=== PATIENT | female | born 1935 | race Caucasian/White ===

== ENCOUNTER 2017-04-22 15:24 | Inpatient (IN) | payer OTHER ==
[~2017-04-22] VITALS: Ht 144.8 cm; Wt 58.2 kg
[~2017-04-22 15:24] MED LIST: ASPI-113 PO; DOCU100C31 PO; LISI-729 PO; SIMV20TA2 PO
[2017-04-22] MEDS ORDERED: CIPROFLOXACIN 400MG / 200ML D5W IV STA (15:38)
[2017-04-22] MEDS ORDERED: SODIUM CHLORIDE 0.9% 1000ML 500 ML IV STA (15:38)
[2017-04-22] MEDS ORDERED: SODIUM CHLORIDE 0.9% 1000ML 1,000 ML IV STA (15:38)
[2017-04-22] MEDS ORDERED: ONDANSETRON INJ 2 MG/ML 2 ML VIAL IV STA (15:38)
[2017-04-22] MEDS ORDERED: OPTIRAY 320 IV PRN (15:45)
[2017-04-22] MEDS ORDERED: ASPI81TA28 PO (15:51)
--- NOTE | 2017-04-22 16:12 | EMERGENCY ROOM VISIT NOTE ---
History Report prepared by Reyna: Leena Leija Under the Supervision of: Dr. Declan العلي M.D. First contact with patient: 15:30 Chief Complaint: REFERRED BY DOCTOR Stated Complaint: JAUNDICE-SENT BY MD OFFICE History of Present Illness The patient is a 81 year old female who presents to the Emergency Room with complaints of worsening jaundiced skin starting about a week ago and worsening 2 days ago. The patient was placed on Bactrim for a suspected UTI a few days ago. She is no longer on the Bactrim. She had blood work 2 days ago which showed elevated liver enzymes. Yesterday, she had an ultrasound of the liver. As per daughter, the patient might need an ERCP in the near future. The patient complains of dizziness and lightheadedness. She started having nausea and vomiting today. She reports some pain with urination. She had a dark orange urine with a red sediment starting a few days ago which resolved for a day and returned today. The patient denies abdominal pain, or any other complaints. She has a history of cholecystectomy. Source of History: patient Onset: about a week ago Position: other (global) Quality: other (jaundiced skin) Timing: worsening Associated Symptoms: + nausea, + vomiting, No abdominal pain Review of Systems See HPI for pertinent positives & negatives. A total of 10 systems reviewed and were otherwise negative. Past Medical & Surgical Medical Problems: (1) Dehydration (2) Headache above the eye region (3) HLD (hyperlipidemia) (4) Hypertension (5) Hypertensive crisis (6) Stroke (7) UTI (urinary tract infection) Surgical Problems: (1) History of cholecystectomy Family History FHx: gallbladder disease Hypertension Social History Smoking Status: Never Smoker Alcohol Use: none Drug Use: none Housing Status: lives with family Occupation Status: retired Current/Historical Medications Scheduled Aspirin (Aspirin Ec), 81 MG PO DAILY Docusate Sodium (Docusate Sodium), 1 CAP PO DAILY Lisinopril (Zestril), 5 MG PO QAM Simvastatin (Zocor), 20 MG PO PM Allergies Coded Allergies: BEE STING (Unverified Allergy, Mild, RASH/WELTS, 09/11/16) Penicillins (Verified Allergy, Mild, OTHER, 09/11/16) patient is unsure how this got on her allergy list. Physical Exam Vital Signs Date Time Temp Pulse Resp B/P (MAP) Pulse Ox O2 Delivery O2 Flow Rate FiO2 04/22/17 18:39 69 27 97 04/22/17 18:38 64 04/22/17 18:36 04/22/17 18:34 66 20 96 Room Air 04/22/17 18:24 64 14 96 04/22/17 18:09 64 97 04/22/17 18:02 88/67 04/22/17 17:54 65 97 04/22/17 17:39 67 94 04/22/17 17:34 65 18 125/54 97 Room Air 04/22/17 17:30 125/54 04/22/17 17:02 101/60 04/22/17 16:54 67 98 04/22/17 16:43 69 17 94/52 96 Room Air 04/22/17 16:39 71 87 04/22/17 16:38 94/52 04/22/17 15:27 36.7 102 20 123/66 99 Room Air Physical Exam GENERAL: Patient is in no acute distress. HEENT: No acute trauma, normocephalic atraumatic, mucous membranes moist, no nasal congestion, mild scleral icterus. NECK: No stridor, no adenopathy, no meningismus, trachea is midline. LUNGS: Clear to auscultation bilaterally, no wheeze, no rhonchi, breath sounds equal. HEART: Without murmurs gallops or rubs, regular rate and rhythm. ABDOMEN: Soft, nontender, bowel sounds positive, no hernias, no peritonitis. EXTREMITIES: No cyanosis or edema, full range of motion of all the joints without pain or difficulty, no signs for acute trauma. NEUROLOGIC: Oriented x 3, no acute motor or sensory deficits, no focal weakness. SKIN: No rash, moderate jaundice, no diaphoresis. Medical Decision & Procedures ER Provider Diagnostic Interpretation: Ultrasound of the right upper quadrant 04/21/2017 Impression: Significant interval increase in common bile duct diameter, now measures 17 mm measured 8.7 mm on the 07/26/2016 study. Further evaluation with ERCP or MRCP is recommended. Resident Physician: Celeste Franz Radiologist: Tabitha Goodwin CT results as stated below per my review and radiologist interpretation: CT ABD/PELVIS IV CONTRAST ONLY CLINICAL HISTORY: Painless jaundice COMPARISON STUDY: 09/11/2016 TECHNIQUE: Following the IV administration of 94 mL of Optiray-320, CT scan of the abdomen and pelvis was performed from the lung bases to the proximal femurs. Images are reviewed in the axial, sagittal, and coronal planes. IV contrast was administered without complication. CT DOSE: 359.64 mGy.cm FINDINGS: Lower chest: There is a solid 5 mm left lower lobe perifissural nodule. This remain similar in size to a prior chest CT performed in May 2015. Liver: No focal hepatic masses are visualized. There is mild central biliary ductal dilatation. Common bile duct is dilated measuring 11 mm. There is a 2 cm long filling defect within the distal common bile duct. This could represent either a calculus, or polypoid neoplasm. An ERCP is recommended in follow-up. Gallbladder: Surgically absent Spleen: Normal in size and attenuation. Pancreas: Unremarkable. There is no ductal dilatation. Adrenal glands: Unremarkable. Kidneys: There is a 1 cm right renal cyst. There is no hydronephrosis. Bowel: There are no transition zones indicate bowel obstruction. There is no acute diverticulitis. There are few scattered colonic diverticula present. The appendix appears normal. Peritoneum: There is no intraperitoneal free air or abdominal ascites. Vasculature: The abdominal aorta is normal in course and caliber. Adenopathy: None. Pelvic viscera: There is abnormal endometrial thickening which measures 18 mm. Nonemergent gynecological consultation is recommended Skeletal structures: There is bilateral L5 spondylolysis. There is a grade 1-2/4 spondylolisthesis of L5 on S1. IMPRESSION: 1. Intra and extrahepatic biliary ductal dilatation 2. 2 cm long filling defect within the distal common bile duct. While likely representing a common bile duct calculus, a polypoid intraductal neoplasm could appear similar. An ERCP is recommended in follow-up 3. No pancreatic masses identified. No evidence of pancreatic ductal dilatation. No hepatic masses. 4. Surgically absent gallbladder 5. No evidence of bowel obstruction no evidence of free air 6. Abnormal endometrial thickening which measures 18 mm. Nonemergent gynecological consultation is recommended Electronically signed by: Isma Colmenares M.D. 04/22/2017 5:31 PM Dictated Date/Time: 04/22/2017 5:21 PM Laboratory Results 04/22/17 16:05 Red Blood Count 4.01, Mean Corpuscular Volume 95.5, Mean Corpuscular Hemoglobin 32.7, Mean Corpuscular Hemoglobin Concent 34.2, Mean Platelet Volume 13.7, Neutrophils (%) (Auto) 76.6, Lymphocytes (%) (Auto) 13.0, Monocytes (%) (Auto) 8.7, Eosinophils (%) (Auto) 1.0, Basophils (%) (Auto) 0.3, Neutrophils # (Auto) 6.09, Lymphocytes # (Auto) 1.03, Monocytes # (Auto) 0.69, Eosinophils # (Auto) 0.08, Basophils # (Auto) 0.02 04/22/17 16:05 Test 04/22/17 16:05 04/22/17 16:14 04/22/17 16:28 White Blood Count 7.94 K/uL (4.8-10.8) Red Blood Count 4.01 M/uL (4.2-5.4) Hemoglobin 13.1 g/dL (12.0-16.0) Hematocrit 38.3 % (37-47) Mean Corpuscular Volume 95.5 fL (80-100) Mean Corpuscular Hemoglobin 32.7 pg (25-34) Mean Corpuscular Hemoglobin Concent 34.2 g/dl (32-36) Platelet Count 217 K/uL (130-400) Mean Platelet Volume 13.7 fL (7.4-10.4) Neutrophils (%) (Auto) 76.6 % Lymphocytes (%) (Auto) 13.0 % Monocytes (%) (Auto) 8.7 % Eosinophils (%) (Auto) 1.0 % Basophils (%) (Auto) 0.3 % Neutrophils # (Auto) 6.09 K/uL (1.4-6.5) Lymphocytes # (Auto) 1.03 K/uL (1.2-3.4) Monocytes # (Auto) 0.69 K/uL (0.11-0.59) Eosinophils # (Auto) 0.08 K/uL (0-0.5) Basophils # (Auto) 0.02 K/uL (0-0.2) RDW Standard Deviation 49.2 fL (36.4-46.3) RDW Coefficient of Variation 14.2 % (11.5-14.5) Immature Granulocyte % (Auto) 0.4 % Immature Granulocyte # (Auto) 0.03 K/uL (0.00-0.02) Prothrombin Time 11.4 SECONDS (9.0-12.0) Prothromb Time International Ratio 1.1 (0.9-1.1) Activated Partial Thromboplast Time 28.8 SECONDS (21.0-31.0) Partial Thromboplastin Ratio 1.1 Anion Gap 7.0 mmol/L (3-11) Est Creatinine Clear Calc Drug Dose 37.6 ml/min Estimated GFR () 73.4 Estimated GFR (Non- 63.4 BUN/Creatinine Ratio 21.6 (10-20) Calcium Level 9.4 mg/dl (8.5-10.1) Total Bilirubin 8.4 mg/dl (0.2-1) Direct Bilirubin 6.7 mg/dl (0-0.2) Aspartate Amino Transf (AST/SGOT) 78 U/L (15-37) Alanine Aminotransferase (ALT/SGPT) 56 U/L (12-78) Alkaline Phosphatase 407 U/L (45-117) Total Protein 7.4 gm/dl (6.4-8.2) Albumin 2.8 gm/dl (3.4-5.0) Lipase 207 U/L (73-393) Bedside Lactic Acid Venous 2.08 mmol/L (0.90-1.70) Lactic Acid Level 1.6 mmol/L (0.4-2.0) Lab results from 04/20/2017 showed: WBC 7.43 HGB 13.5 BUN 20 Creatinine 1.2 (H) Albumin 3.4 (L) AST 79 (H) Alkaline Phosphate 443 (H) Bilirubin, Total 8.5 (H) ALT 58(H) Her urine culture was negative for infection. Laboratory results reviewed by me. Medications Administered Medications (Trade) Dose Ordered Sig/Nayeli Route Start Time Stop Time Status Last Admin Dose Admin Sodium Chloride 500 ml @ 999 mls/hr Q31M STAT IV 04/22/17 15:38 04/22/17 16:08 DC 04/22/17 16:16 999 MLS/HR Ondansetron HCl (Zofran Inj) 4 mg NOW STAT IV 04/22/17 15:38 04/22/17 15:42 DC 04/22/17 16:16 4 MG Sodium Chloride 1,000 ml @ 125 mls/hr Q8H STAT IV 04/22/17 15:38 04/22/17 20:23 DC 04/22/17 16:40 125 MLS/HR Ciprofloxacin/ Dextrose (Cipro / D5W) 400 mg NOW STAT IV 04/22/17 15:38 04/22/17 15:42 DC 04/22/17 16:41 400 MG Sodium Chloride 1,000 ml @ 50 mls/hr Q20H IV 04/22/17 18:45 05/22/17 18:44 04/22/17 18:45 50 MLS/HR ECG Indication: other (Jaundiced skin) Rate (beats per minute): 63 Rhythm: normal sinus Findings: no acute ischemic change, no ectopy ED Course 1530: The patient was evaluated in room A10. A complete history and physical exam was performed. 1538: Ciprofloxacin/Dextrose 400 mg IV, Sodium Chloride 1000 ml @ 125 mls/hr IV , Zofran Inj 4 mg IV, Sodium Chloride 500 ml @ 999 mls/hr IV 1818: I discussed the patient's case with Dr. Sandoval, dub room engineer with [facility]. He recommended hospitalizing the patient. 1827: Upon reexamination the patient is resting comfortably. I discussed results and treatment plan with the patient. She verbalizes agreement and understanding. I discussed the patient's case with Dr. Alexander, from [facility]. The patient will be evaluated for further management. Medical Decision Medication Reconciliation: I attest that I have personally reviewed the patient' s current medication list. Blood Pressure Screening: Patient was found to have normal blood pressure on screening and does not require follow-up. Differential diagnosis includes but is not limited to malignancy, biliary obstruction, liver mass, pancreatic mass, electrolyte imbalance, dehydration, infection, jaundice, UTI. There is no leukocytosis or concerning anemia. No significant electrolyte abnormality or kidney failure. Liver enzymes are elevated, bilirubin is over 8. No pancreatitis. EKG shows a normal sinus rhythm, no acute ischemia. Abdominal and pelvis CT shows evidence for biliary obstruction, no bowel obstruction. No liver mass. Urinalysis shows possible infection, urine culture is pending. Blood cultures are pending. Lactic acid level was not significantly elevated making severe sepsis less likely. The patient received IV Zofran, IV saline, she was given IV Cipro. Given her jaundice, given the findings on CT, admission/observation was warranted. I spoke to the GI physician on-call as well as to the on-call hospitalist. Case management has been involved. The patient is aware of all her findings. Consults Time Called: 1805 Consulting Physician: Dr. Sandoval, dub room engineer with [facility] Returned Call: 1817 I discussed the patient's case with Dr. Sandoval, dub room engineer with [facility]. He recommended hospitalizing the patient. Additional Consults: Time Called: 1820 Consulted Physician: Dr. Alexander, from [facility] Returned Call: 1826 Additional Comments: I discussed the patient's case with Dr. Alexander, from [facility]. Impression Primary Impression: Biliary obstruction Additional Impressions: Jaundice Vomiting Scribe Attestation The scribe's documentation has been prepared under my direction and personally reviewed by me in its entirety. I confirm that the note above accurately reflects all work, treatment, procedures, and medical decision making performed by me. Departure Information Dispostion Being Evaluated By Hospitalist Referrals No Doctor, Assigned (PCP) Patient Instructions My [facility] Problem Qualifiers
[2017-04-22 16:23] LABS: BASO % 0.3 %; BASO ABS # 0.02 K/uL (0-0.2); COMPLETE YES; HEMATOCRIT 38.3 % (37-47); IG% 0.4 %; LYMPH ABS # 1.03 K/uL (1.2-3.4); MEAN CELL VOLUME 95.5 fL (80-100); MEAN CORPUSCULAR HEMOGLOBIN 32.7 pg (25-34); MEAN CORPUSCULAR HGB CONC 34.2 g/dl (32-36); MEAN PLATELET VOLUME 13.7 fL (7.4-10.4); MONO % 8.7 %; NEUT % 76.6 %; PLATELET COUNT 217 K/uL (130-400); RED BLOOD COUNT 4.01 M/uL (4.2-5.4); WHITE BLOOD COUNT 7.94 K/uL (4.8-10.8)
[2017-04-22 16:35] LABS: INR 1.1 (0.9-1.1); PARTIAL THROMBOPLASTIN RATIO 1.1; PROTHROMBIN TIME (PATIENT) 11.4 SECONDS (9.0-12.0)
[2017-04-22 16:53] LABS: BUN/CREATININE RATIO 21.6 (10-20); CALCIUM 9.4 mg/dl (8.5-10.1); CREATININE 0.86 mg/dl (0.60-1.20); POTASSIUM 4.6 mmol/L (3.5-5.1)
--- NOTE | 2017-04-22 17:32 | DIAGNOSTIC IMAGING REPORT ---
CT ABD/PELVIS IV CONTRAST ONLY CLINICAL HISTORY: Painless jaundice COMPARISON STUDY: 09/11/2016 TECHNIQUE: Following the IV administration of 94 mL of Optiray-320, CT scan of the abdomen and pelvis was performed from the lung bases to the proximal femurs. Images are reviewed in the axial, sagittal, and coronal planes. IV contrast was administered without complication. CT DOSE: 359.64 mGy.cm FINDINGS: Lower chest: There is a solid 5 mm left lower lobe perifissural nodule. This remain similar in size to a prior chest CT performed in May 2015. Liver: No focal hepatic masses are visualized. There is mild central biliary ductal dilatation. Common bile duct is dilated measuring 11 mm. There is a 2 cm long filling defect within the distal common bile duct. This could represent either a calculus, or polypoid neoplasm. An ERCP is recommended in follow-up. Gallbladder: Surgically absent Spleen: Normal in size and attenuation. Pancreas: Unremarkable. There is no ductal dilatation. Adrenal glands: Unremarkable. Kidneys: There is a 1 cm right renal cyst. There is no hydronephrosis. Bowel: There are no transition zones indicate bowel obstruction. There is no acute diverticulitis. There are few scattered colonic diverticula present. The appendix appears normal. Peritoneum: There is no intraperitoneal free air or abdominal ascites. Vasculature: The abdominal aorta is normal in course and caliber. Adenopathy: None. Pelvic viscera: There is abnormal endometrial thickening which measures 18 mm. Nonemergent gynecological consultation is recommended Skeletal structures: There is bilateral L5 spondylolysis. There is a grade 1-2/4 spondylolisthesis of L5 on S1. IMPRESSION: 1. Intra and extrahepatic biliary ductal dilatation 2. 2 cm long filling defect within the distal common bile duct. While likely representing a common bile duct calculus, a polypoid intraductal neoplasm could appear similar. An ERCP is recommended in follow-up 3. No pancreatic masses identified. No evidence of pancreatic ductal dilatation. No hepatic masses. 4. Surgically absent gallbladder 5. No evidence of bowel obstruction no evidence of free air 6. Abnormal endometrial thickening which measures 18 mm. Nonemergent gynecological consultation is recommended Electronically signed by: Isma Colmenares M.D. 04/22/2017 5:31 PM Dictated Date/Time: 04/22/2017 5:21 PM
--- NOTE | 2017-04-22 18:39 | History and Physical ---
History & Physical Date & Time of Service: Apr 22, 2017 at 18:39 Chief Complaint: Jaundice-Sent By Md Office Primary Care Physician: Janet Maria D.O. History of Present Illness Source: patient, family (Daughter) Patient is a 81 Yr female with PMH of CVA with residual left sided weakness, HTN, cholelithiasis S/P cholecystectomy in 2008 presents with worsening Jaundice since 7 days duration. Patient was recently treated for a possible UTI with Bactrim by her PCP which she completed the course. She reports generalized weakness, dizziness and worsening itchiness of skin since 7 days. Also states having nausea, chills and ? [place] colored urine. Denies any history of chest pain, SOB, fever, vomiting, abdominal pain, diarrhea, cough, bleeding in stools. CT abdomen is suggestive of possible CBD stone. Past Medical/Surgical History Medical Problems: (1) Dehydration Status: Resolved (2) Headache above the eye region Status: Resolved (3) HLD (hyperlipidemia) Status: Chronic (4) Hypertension Status: Chronic (5) Hypertensive crisis Status: Resolved (6) Stroke Status: Resolved (7) UTI (urinary tract infection) Status: Resolved Surgical Problems: (1) History of cholecystectomy Status: Resolved Family History FHx: gallbladder disease Hypertension Reviewed. Not relevant Social History Smoking Status: Never Smoker Alcohol Use: none Drug Use: none Occupational Status: retired Immunizations History of Influenza Vaccine: No History of Tetanus Vaccine?: Yes History of Pneumococcal: No History of Hepatitis B Vaccine: No Multi-Drug Resistant Organisms History of MDRO: Yes Allergies Coded Allergies: BEE STING (Unverified Allergy, Mild, RASH/WELTS, 09/11/16) Penicillins (Verified Allergy, Mild, OTHER, 09/11/16) patient is unsure how this got on her allergy list. Home Medications Scheduled Aspirin (Aspirin Ec), 81 MG PO DAILY Docusate Sodium (Docusate Sodium), 1 CAP PO DAILY Lisinopril (Zestril), 5 MG PO QAM Simvastatin (Zocor), 20 MG PO PM Review of Systems See HPI for pertinent positives & negatives. A total of 10 systems reviewed and were otherwise negative. Physical Exam Vital Signs Date Time Temp Pulse Resp B/P (MAP) Pulse Ox O2 Delivery O2 Flow Rate FiO2 04/22/17 18:38 64 04/22/17 18:34 66 20 96 Room Air 04/22/17 17:34 65 18 125/54 97 Room Air 04/22/17 16:43 69 17 94/52 96 Room Air 04/22/17 15:27 36.7 102 20 123/66 99 Room Air General Appearance: WD/WN, no apparent distress Head: normocephalic, atraumatic Eyes: normal inspection, PERRL, EOMI, + pertinent finding (Visual loss on lateral side) ENT: normal ENT inspection, hearing grossly normal Neck: supple, trachea midline Respiratory/Chest: chest non-tender, lungs clear, normal breath sounds, no accessory muscle use Cardiovascular: regular rate, rhythm, no edema, no murmur Abdomen/GI: normal bowel sounds, non tender, soft Back: normal inspection Extremities/Musculoskelatal: normal inspection, no pedal edema Neurologic/Psych: black oxide coating equipment tender II-XII nml as tested, alert, normal mood/affect, oriented x 3, + pertinent finding (Vision loss on lateral side, grossly no focal deficits) Skin: warm/dry, no rash, + jaundice, + pertinent finding (Excoriations on extrtemities ) Diagnostics Laboratory Results Results Past 24 Hours Test 04/22/17 16:05 04/22/17 16:14 04/22/17 16:28 Range/Units White Blood Count 7.94 4.8-10.8 K/uL Red Blood Count 4.01 4.2-5.4 M/uL Hemoglobin 13.1 12.0-16.0 g/dL Hematocrit 38.3 37-47 % Mean Corpuscular Volume 95.5 80-100 fL Mean Corpuscular Hemoglobin 32.7 25-34 pg Mean Corpuscular Hemoglobin Concent 34.2 32-36 g/dl Platelet Count 217 130-400 K/uL Mean Platelet Volume 13.7 7.4-10.4 fL Neutrophils (%) (Auto) 76.6 % Lymphocytes (%) (Auto) 13.0 % Monocytes (%) (Auto) 8.7 % Eosinophils (%) (Auto) 1.0 % Basophils (%) (Auto) 0.3 % Neutrophils # (Auto) 6.09 1.4-6.5 K/uL Lymphocytes # (Auto) 1.03 1.2-3.4 K/uL Monocytes # (Auto) 0.69 0.11-0.59 K/uL Eosinophils # (Auto) 0.08 0-0.5 K/uL Basophils # (Auto) 0.02 0-0.2 K/uL RDW Standard Deviation 49.2 36.4-46.3 fL RDW Coefficient of Variation 14.2 11.5-14.5 % Immature Granulocyte % (Auto) 0.4 % Immature Granulocyte # (Auto) 0.03 0.00-0.02 K/uL Prothrombin Time 11.4 9.0-12.0 SECONDS Prothromb Time International Ratio 1.1 0.9-1.1 Activated Partial Thromboplast Time 28.8 21.0-31.0 SECONDS Partial Thromboplastin Ratio 1.1 Sodium Level 136 136-145 mmol/L Potassium Level 4.6 3.5-5.1 mmol/L Chloride Level 104 98-107 mmol/L Carbon Dioxide Level 25 21-32 mmol/L Anion Gap 7.0 3-11 mmol/L Blood Urea Nitrogen 19 7-18 mg/dl Creatinine 0.86 0.60-1.20 mg/dl Est Creatinine Clear Calc Drug Dose 37.6 ml/min Estimated GFR () 73.4 Estimated GFR (Non- 63.4 BUN/Creatinine Ratio 21.6 10-20 Random Glucose 99 70-99 mg/dl Calcium Level 9.4 8.5-10.1 mg/dl Total Bilirubin 8.4 0.2-1 mg/dl Direct Bilirubin 6.7 0-0.2 mg/dl Aspartate Amino Transf (AST/SGOT) 78 15-37 U/L Alanine Aminotransferase (ALT/SGPT) 56 12-78 U/L Alkaline Phosphatase 407 45-117 U/L Total Protein 7.4 6.4-8.2 gm/dl Albumin 2.8 3.4-5.0 gm/dl Lipase 207 73-393 U/L Bedside Lactic Acid Venous 2.08 0.90-1.70 mmol/L Lactic Acid Level 1.6 0.4-2.0 mmol/L Microbiology Results 04/22/17 Blood Culture, Received Pending 04/22/17 Blood Culture, Received Pending Diagnostic Radiology CT abdomen: 1. Intra and extrahepatic biliary ductal dilatation 2. 2 cm long filling defect within the distal common bile duct. While likely representing a common bile duct calculus, a polypoid intraductal neoplasm could appear similar. An ERCP is recommended in follow-up 3. No pancreatic masses identified. No evidence of pancreatic ductal dilatation. No hepatic masses. 4. Surgically absent gallbladder 5. No evidence of bowel obstruction no evidence of free air 6. Abnormal endometrial thickening which measures 18 mm. Nonemergent gynecological consultation is recommended Impression Assessment and Plan Obstructive Jaundice: Likely secondary to CBD stone S/P Cholecystectomy in 2008 No signs of infection Admit in medical floor Discussed with GI : Appreciate Input Start on IV Rocephin 1gm daily per GI recommendations Monitor LFTs Hold statin IV fluids, clear liquid diet Atrax PRN for itching Possible ERCP in AM Recent UTI: Completed Bactrim as outpatient UA:pending Consider Urine culture if UA suggestive H/O CVA with residual left sided weakness and visual loss Continue ASA, Lisinopril Statin held HTN: Stable Continue Lisinopril Endometrial wall thickening: Incidental finding on CT scan Referral to OBGYN as outpatient DVT Px; Heparin SQ Code Status: Full Code
[2017-04-22] MEDS: SODIUM CHLORIDE 0.9% 1000ML 1,000 ML IV SCH (18:45)
[2017-04-22] MEDS ORDERED: ONDANSETRON INJ 2 MG/ML 2 ML VIAL IV PRN (18:45)
[2017-04-22] MEDS ORDERED: hydrOXYzine HCL 25 MG TAB PO PRN (19:15)
[2017-04-22 19:49] LABS: URINE APPEARANCE CLEAR (CLEAR); URINE COLOR DK YELLOW; URINE NITRITE POS (NEG); URINE SPECIFIC GRAVITY > 1.045 (1.000-1.030); UROBILINOGEN NEG (NEG); ZZUR CULT IF INDIC CLEAN CATCH NO
[2017-04-22 19:56] LABS: MANUAL MICROSCOPIC REQUIRED? NO; REVIEW REQ? NO; URINE BILIRUBIN 3+ (NEG)
[2017-04-22 20:15] VITALS: BP 100/65; PULSE 69; TEMP 37.3; O2SAT 97
[2017-04-22 20:30] VITALS: Ht 144.8 cm; Wt 58.2 kg
--- NOTE | 2017-04-22 20:53 | Gastrointestinal Consultation ---
Gastrointestinal Consultation Date of Consultation: Apr 22, 2017 History of Present Illness Patient is a 81 year old female who presents to the ER with complaints of being yellow. Her and her daughter provides a history over the last few weeks has had a diminished appetite, and for at least the last 7 days turning yellow. She has had this happen to her in 2008 with a similar presentation, was found to have choledocholithiasis and underwent ERCP with stone removal followed by cholecystectomy. She denies any recent medications, fevers, chills, nausea, vomiting, but does admit to feeling lightheaded. She is not having any abdominal pain. CT scan shows evidence of a distal cbd intraluminal filling defect concerning for stone. Past Medical/Surgical History Medical Problems: (1) Biliary obstruction Status: Acute (2) Facial contusion Status: Acute (3) Head injury Status: Acute (4) Jaundice Status: Acute (5) Vomiting Status: Acute Family History FHx: gallbladder disease Hypertension Social History Smoking Status: Never Smoker Alcohol Use: none Drug Use: none Housing Status: lives with family Occupation Status: retired Allergies Coded Allergies: BEE STING (Unverified Allergy, Mild, RASH/WELTS, 09/11/16) Penicillins (Verified Allergy, Mild, OTHER, 09/11/16) patient is unsure how this got on her allergy list. Current Medications Home Meds and Scripts Medications Dose Route/Sig Max Daily Dose Days Date Category Aspirin Ec (Aspirin) 81 Mg Tab 81 Mg PO DAILY 04/22/17 Reported Docusate Sodium 100 Mg Cap 1 Cap PO DAILY 30 05/17/15 Reported Zocor (Simvastatin) 20 Mg Tab 20 Mg PO PM 90 08/28/13 Rx Zestril (Lisinopril) 5 Mg Tab 5 Mg PO QAM 90 08/28/13 Rx Review of Systems Constitutional: No see HPI, No fever, No chills, No sweats, No weight loss, No weakness, No fatigue, No problem reported Eyes: No see HPI, No worsening of vision, No eye pain, No redness, No discharge , No diplopia, No problem reported ENT: No see HPI, No hearing loss, No unusual epistaxis, No nasal symptoms, No sore throat, No tinnitus, No dental problems, No trouble swallowing, No pain on swallowing, No problem reported Respiratory: No see HPI, No cough, No sputum, No wheezing, No shortness of breath, No dyspnea on exertion, No dyspnea at rest, No hemoptysis, No problem reported Cardiac: No see HPI, No chest pain, No orthopnea, No PND, No edema, No claudication, No palpitations, No problem reported Physical Exam Date Time Temp Pulse Resp B/P (MAP) Pulse Ox O2 Delivery O2 Flow Rate FiO2 04/22/17 20:15 37.3 69 18 100/65 (77) 97 Room Air 04/22/17 19:54 67 22 94 04/22/17 19:39 65 18 04/22/17 19:34 96/44 04/22/17 19:02 04/22/17 18:54 71 21 94 04/22/17 18:39 69 27 97 04/22/17 18:38 64 04/22/17 18:36 04/22/17 18:34 66 20 96 Room Air 04/22/17 18:24 64 14 96 04/22/17 18:09 64 97 04/22/17 18:02 88/67 04/22/17 17:54 65 97 04/22/17 17:39 67 94 04/22/17 17:34 65 18 125/54 97 Room Air 04/22/17 17:30 125/54 04/22/17 17:02 101/60 04/22/17 16:54 67 98 04/22/17 16:43 69 17 94/52 96 Room Air 04/22/17 16:39 71 87 04/22/17 16:38 94/52 04/22/17 15:27 36.7 102 20 123/66 99 Room Air General Appearance: WD/WN, + pertinent finding (yellow skin) Eyes: normal inspection ENT: normal ENT inspection Neck: supple Respiratory/Chest: chest non-tender, lungs clear Cardiovascular: regular rate, rhythm, no edema, no gallop Abdomen: normal bowel sounds, non tender, soft Extremities: normal range of motion, non-tender 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, oriented x 3 Laboratory Results Last 24 Hours Test 04/22/17 16:05 04/22/17 16:14 04/22/17 16:28 04/22/17 19:37 White Blood Count 7.94 K/uL Red Blood Count 4.01 M/uL Hemoglobin 13.1 g/dL Hematocrit 38.3 % Mean Corpuscular Volume 95.5 fL Mean Corpuscular Hemoglobin 32.7 pg Mean Corpuscular Hemoglobin Concent 34.2 g/dl Platelet Count 217 K/uL Mean Platelet Volume 13.7 fL Neutrophils (%) (Auto) 76.6 % Lymphocytes (%) (Auto) 13.0 % Monocytes (%) (Auto) 8.7 % Eosinophils (%) (Auto) 1.0 % Basophils (%) (Auto) 0.3 % Neutrophils # (Auto) 6.09 K/uL Lymphocytes # (Auto) 1.03 K/uL Monocytes # (Auto) 0.69 K/uL Eosinophils # (Auto) 0.08 K/uL Basophils # (Auto) 0.02 K/uL RDW Standard Deviation 49.2 fL RDW Coefficient of Variation 14.2 % Immature Granulocyte % (Auto) 0.4 % Immature Granulocyte # (Auto) 0.03 K/uL Prothrombin Time 11.4 SECONDS Prothromb Time International Ratio 1.1 Activated Partial Thromboplast Time 28.8 SECONDS Partial Thromboplastin Ratio 1.1 Sodium Level 136 mmol/L Potassium Level 4.6 mmol/L Chloride Level 104 mmol/L Carbon Dioxide Level 25 mmol/L Anion Gap 7.0 mmol/L Blood Urea Nitrogen 19 mg/dl Creatinine 0.86 mg/dl Est Creatinine Clear Calc Drug Dose 37.6 ml/min Estimated GFR () 73.4 Estimated GFR (Non- 63.4 BUN/Creatinine Ratio 21.6 Random Glucose 99 mg/dl Calcium Level 9.4 mg/dl Total Bilirubin 8.4 mg/dl Direct Bilirubin 6.7 mg/dl Aspartate Amino Transf (AST/SGOT) 78 U/L Alanine Aminotransferase (ALT/SGPT) 56 U/L Alkaline Phosphatase 407 U/L Total Protein 7.4 gm/dl Albumin 2.8 gm/dl Lipase 207 U/L Bedside Lactic Acid Venous 2.08 mmol/L Lactic Acid Level 1.6 mmol/L Urine Color DK YELLOW Urine Appearance CLEAR Urine pH 5.0 Urine Specific [place] > 1.045 Urine Protein NEG Urine Glucose (UA) NEG Urine Ketones NEG Urine Occult Blood NEG Urine Nitrite POS Urine Bilirubin 3+ Urine Urobilinogen NEG Urine Leukocyte Esterase TRACE Urine WBC (Auto) 1-5 /hpf Urine RBC (Auto) 0-4 /hpf Urine Hyaline Casts (Auto) 5-10 /lpf Urine Epithelial Cells (Auto) 5-10 /lpf Urine Bacteria (Auto) NEG CT SCAN Liver: No focal hepatic masses are visualized. There is mild central biliary ductal dilatation. Common bile duct is dilated measuring 11 mm. There is a 2 cm long filling defect within the distal common bile duct. This could represent either a calculus, or polypoid neoplasm. An ERCP is recommended in follow-up. Gallbladder: Surgically absent Spleen: Normal in size and attenuation. Pancreas: Unremarkable. There is no ductal dilatation. Adrenal glands: Unremarkable. Kidneys: There is a 1 cm right renal cyst. There is no hydronephrosis. Bowel: There are no transition zones indicate bowel obstruction. There is no acute diverticulitis. There are few scattered colonic diverticula present. The appendix appears normal. Peritoneum: There is no intraperitoneal free air or abdominal ascites. Vasculature: The abdominal aorta is normal in course and caliber. Adenopathy: None. Pelvic viscera: There is abnormal endometrial thickening which measures 18 mm. Nonemergent gynecological consultation is recommended Skeletal structures: There is bilateral L5 spondylolysis. There is a grade 1-2/4 spondylolisthesis of L5 on S1. IMPRESSION: 1. Intra and extrahepatic biliary ductal dilatation 2. 2 cm long filling defect within the distal common bile duct. While likely representing a common bile duct calculus, a polypoid intraductal neoplasm could appear similar. An ERCP is recommended in follow-up 3. No pancreatic masses identified. No evidence of pancreatic ductal dilatation. No hepatic masses. 4. Surgically absent gallbladder 5. No evidence of bowel obstruction no evidence of free air 6. Abnormal endometrial thickening which measures 18 mm. Nonemergent gynecological consultation is recommended Impression Patient is a 81 year old female presenting with painless jaundice and apparent biliary obstruction Plan Signs of recurrent choledocholithiasis on CT No signs of ascending cholangitis Ok for abx today NPO after MN Plan for ERCP [address] iPmentel
[2017-04-22] MEDS: CEFTRIAXONE SOD INJ 1 GM in DEXTROSE 5% ADD-VANTAGE 50ML 50 ML IV SCH (21:46)
[2017-04-22] MEDS ORDERED: HEPARIN SOD 5000 UNIT/0.5 ML CARP SQ SCH (22:00)
[2017-04-22 22:44] VITALS: BP 82/48; PULSE 67; TEMP 37.4; O2SAT 94
[2017-04-22 23:00] VITALS: BP 82/47
[2017-04-22] MEDS ORDERED: NURSING VERBAL MED ORDER ONE (23:15)
[2017-04-23] VITALS (9 sets, daily range): BP systolic 97–174; BP diastolic 57–76; PULSE 54–65; TEMP 36.3–36.9; O2SAT 96–98
[2017-04-23] MEDS: SODIUM CHLORIDE 0.9% 1000ML 1,000 ML IV SCH (05:01)
[2017-04-23 06:16] LABS: BASO % 0.5 %; BASO ABS # 0.03 K/uL (0-0.2); COMPLETE YES; EOS % 1.4 %; HEMATOCRIT 31.7 % (37-47); IG% 0.3 %; LYMPH % 36.9 %; LYMPH ABS # 2.15 K/uL (1.2-3.4); MEAN CELL VOLUME 93.5 fL (80-100); MEAN CORPUSCULAR HEMOGLOBIN 31.9 pg (25-34); MEAN CORPUSCULAR HGB CONC 34.1 g/dl (32-36); MEAN PLATELET VOLUME 13.1 fL (7.4-10.4); MONO % 9.8 %; NEUT % 51.1 %; PLATELET COUNT 152 K/uL (130-400); RED BLOOD COUNT 3.39 M/uL (4.2-5.4); WHITE BLOOD COUNT 5.82 K/uL (4.8-10.8)
[2017-04-23 07:01] LABS: ALB/GLOB RATIO 0.5 (0.9-2); BUN/CREATININE RATIO 17.5 (10-20); CALCIUM 8.5 mg/dl (8.5-10.1); CREATININE 0.7 mg/dl (0.60-1.20); POTASSIUM 4.6 mmol/L (3.5-5.1)
[2017-04-23] MEDS ORDERED: ONDANSETRON INJ 2 MG/ML 2 ML VIAL ONE (07:16)
[2017-04-23] MEDS ORDERED: PROPOFOL IV EMULSION 10 MG/ML 20 ML VIAL IV ONE (07:16)
[2017-04-23] MEDS ORDERED: LIDOCAINE HCL 2% 2 ML VIAL (20MG/ML) ONE (07:16)
[2017-04-23] MEDS ORDERED: FENTANYL CITRATE INJ 50 MCG/1 ML 2 ML VIAL ONE (07:16)
[2017-04-23] MEDS ORDERED: GLYCOPYRROLATE INJ 0.2 MG/ML VIAL ONE (07:16)
[2017-04-23] MEDS ORDERED: MIDAZOLAM HCL 1 MG/ML 2ML VIAL ONE (07:16)
[2017-04-23] MEDS ORDERED: ROCURONIUM BROMIDE 10 MG/ML 5 ML VIAL ONE (07:16)
[2017-04-23] MEDS ORDERED: NEOSTIGMINE METHYLSULFATE 5 MG/5 ML SYR ONE (07:16)
[2017-04-23] MEDS ORDERED: DEXAMETHASONE SOD INJ 4 MG/ML VIAL ONE (07:16)
--- NOTE | 2017-04-23 07:39 | History & Physical Bridge Note ---
H&P Re-Evaluation Bridge Note: I have examined the patient, reviewed the History & Physical and in the interval since the performance of the History & Physical I have noted the following changes of clinical significance: No changes noted
[2017-04-23] MEDS ORDERED: INDOMETHACIN 50 MG SUPP PR ONE ×2 (07:45→07:54)
[2017-04-23] MEDS ORDERED: PNEUMOCOCCAL ADMINISTRATION CHARGE ONE (08:00)
[2017-04-23] MEDS ORDERED: PNEUMOCOCCAL POLYSACCHARIDES 25 MCG/0.5 ML VIAL/SYR IM. ONE (08:00)
[2017-04-23] MEDS ORDERED: ATROPINE SULFATE 0.1 MG/ML 5ML SYR IV PRN (08:15)
[2017-04-23] MEDS ORDERED: LABETALOL HCL IV 5 MG/ML 20ML IV PRN (08:15)
[2017-04-23] MEDS ORDERED: ONDANSETRON INJ 2 MG/ML 2 ML VIAL IV PRN (08:15)
[2017-04-23] MEDS ORDERED: FENTANYL CITRATE INJ 50 MCG/1 ML 2 ML VIAL IV PRN (08:15)
[2017-04-23] MEDS ORDERED: ASPIRIN 81 MG ECTAB PO SCH (09:00)
--- NOTE | 2017-04-23 09:08 | [facility] Operative Report ---
Operative Report Operative Date Apr 23, 2017. Pre-Operative Diagnosis painless jaundice and biliary obstruction, Choledocholithiasis Post-Operative Diagnosis Same as preoperative diagnosis Procedure(s) Performed Endoscopic retrograde cholangiopancreatography, sphincterotomy, dilation, stone removal Surgeon Dr. Pimentel [place] Dipper Surgeon(s) None Estimated Blood Loss 0 mL Findings Choledocholithiasis. Specimens No pathology specimens per surgeon Drains None Anesthesia General endotracheal Complication(s) None Disposition Recovery Room / PACU Implants None Indications Painless jaundice Description of Procedure See Provation note I attest to the content of the Intraoperative Record and any orders documented therein. Any exceptions are noted below.
--- NOTE | 2017-04-23 09:19 | DIAGNOSTIC IMAGING REPORT ---
INTRAOPERATIVE RADIOGRAPHS CLINICAL HISTORY: ERCP. Fluoroscopy time: 158 seconds. FINDINGS: 15 spot fluoroscopic images of the right upper quadrant from an ERCP procedure are presented. Correlation is made with abdominal CT dated 04/22/2017. On the initial image cholecystectomy clips are noted and the endoscope projects over the stomach. There is cannulation of the common bile duct. A large filling defect is seen distally within the common duct and likely represents a large stone. There is intra and extrahepatic biliary ductal dilatation. A balloon sweep of the common bile duct is performed. The filling defect appears to have resolved on the final images. IMPRESSION: Intraoperative images from ERCP procedure as above. Presumed choledocholithiasis was noted. See operative report for detailed findings. Electronically signed by: Declan Szymanski M.D. 04/23/2017 9:17 AM Dictated Date/Time: 04/23/2017 9:15 AM
--- NOTE | 2017-04-23 09:37 | Anesthesiology Progress Note ---
Anesthesia Post Op Note Date & Time Apr 23, 2017 at 09:36 Vital Signs Pain Intensity: 0 Vital Signs Past 12 Hours Date Time Temp Pulse Resp B/P (MAP) Pulse Ox O2 Delivery O2 Flow Rate FiO2 04/23/17 09:29 36.2 04/23/17 09:27 58 15 100 04/23/17 09:27 58 15 04/23/17 09:26 157/50 04/23/17 09:22 63 12 04/23/17 09:22 62 12 04/23/17 09:21 154/70 04/23/17 09:19 65 20 04/23/17 09:19 64 20 04/23/17 09:16 160/75 04/23/17 09:14 62 16 04/23/17 09:14 61 16 99 04/23/17 09:13 61 15 97 04/23/17 09:13 63 15 04/23/17 09:11 156/81 04/23/17 09:08 66 17 04/23/17 09:08 63 17 04/23/17 09:06 165/75 04/23/17 09:03 67 17 100 04/23/17 09:03 66 17 04/23/17 09:02 67 19 04/23/17 09:02 67 19 143/51 100 04/23/17 08:57 66 20 100 04/23/17 08:57 65 20 04/23/17 08:56 158/60 04/23/17 08:53 146/61 04/23/17 08:52 69 20 04/23/17 08:52 69 20 99 04/23/17 08:52 36.0 70 18 146/61 100 Mask 10 04/23/17 07:13 Room Air 04/23/17 03:31 97/61 (73) 04/23/17 00:30 Room Air 04/22/17 23:00 82/47 (59) 04/22/17 22:44 37.4 67 18 82/48 (59) 94 Room Air Notes Mental Status: alert / awake / arousable, participated in evaluation Pt Amnestic to Procedure: Yes Nausea / Vomiting: adequately controlled Pain: adequately controlled Airway Patency, RR, SpO2: stable & adequate BP & HR: stable & adequate Hydration State: stable & adequate Anesthetic Complications: no major complications apparent
[2017-04-23] MEDS: DOCUSATE SODIUM 100 MG CAP PO SCH (10:10)
[2017-04-23] MEDS: LISINOPRIL 5 MG TAB PO SCH (10:10)
[2017-04-23] MEDS: D5W AND LACTATED RINGERS 1,000 ML IV SCH ×2 (10:12→19:11)
[2017-04-23] MEDS ORDERED: AMLODIPINE BESYLATE 5 MG TAB PO ONE (16:15)
[2017-04-23] MEDS ORDERED: CALCIUM CARBONATE 500 MG CHEWABLE PO SCH (18:30)
--- NOTE | 2017-04-23 18:58 | Progress Note ---
Medicine Progress Note Date & Time of Visit: Apr 23, 2017 at 18:53. Subjective Patient reports feeling well, she is anxious to go home. No overnight events noted. Tolerating clear liquids without difficulty. States she has been urinating alot. Has heartburn after drinking orange juice and requests tums. Otherwise no complaints. States she had a normal BM today. Objective Last 8 Hrs Date Time Temp Pulse Resp B/P (MAP) Pulse Ox O2 Delivery O2 Flow Rate FiO2 04/23/17 16:00 96 Room Air 04/23/17 15:45 36.5 63 16 158/66 (96) 96 Room Air 04/23/17 12:56 36.6 63 18 174/68 (103) 97 Room Air 04/23/17 12:09 36.9 58 17 161/59 (93) 96 Room Air 04/23/17 10:59 36.5 54 18 162/57 (92) 96 Room Air Physical Exam: GENERAL: Patient is in no acute distress. HEENT: No acute trauma, normocephalic, mucous membranes moist, no nasal congestion, no scleral icterus. + scleral icterus NECK: No stridor, trachea is midline. LUNGS: Clear to auscultation bilaterally, no wheeze, no rhonchi, breath sounds equal. HEART: Without murmurs gallops or rubs, regular rate and rhythm. ABDOMEN: Soft, nontender, bowel sounds positive EXTREMITIES: No cyanosis or edema NEUROLOGIC: Oriented x 3, no acute motor or sensory deficits, no focal weakness. SKIN: No rash, no jaundice, no diaphoresis. Laboratory Results: Last 24 Hours Test 04/22/17 19:37 04/23/17 05:57 Urine Color DK YELLOW Urine Appearance CLEAR Urine pH 5.0 Urine Specific [place] > 1.045 Urine Protein NEG Urine Glucose (UA) NEG Urine Ketones NEG Urine Occult Blood NEG Urine Nitrite POS Urine Bilirubin 3+ Urine Urobilinogen NEG Urine Leukocyte Esterase TRACE Urine WBC (Auto) 1-5 /hpf Urine RBC (Auto) 0-4 /hpf Urine Hyaline Casts (Auto) 5-10 /lpf Urine Epithelial Cells (Auto) 5-10 /lpf Urine Bacteria (Auto) NEG White Blood Count 5.82 K/uL Red Blood Count 3.39 M/uL Hemoglobin 10.8 g/dL Hematocrit 31.7 % Mean Corpuscular Volume 93.5 fL Mean Corpuscular Hemoglobin 31.9 pg Mean Corpuscular Hemoglobin Concent 34.1 g/dl Platelet Count 152 K/uL Mean Platelet Volume 13.1 fL Neutrophils (%) (Auto) 51.1 % Lymphocytes (%) (Auto) 36.9 % Monocytes (%) (Auto) 9.8 % Eosinophils (%) (Auto) 1.4 % Basophils (%) (Auto) 0.5 % Neutrophils # (Auto) 2.97 K/uL Lymphocytes # (Auto) 2.15 K/uL Monocytes # (Auto) 0.57 K/uL Eosinophils # (Auto) 0.08 K/uL Basophils # (Auto) 0.03 K/uL RDW Standard Deviation 49.5 fL RDW Coefficient of Variation 14.4 % Immature Granulocyte % (Auto) 0.3 % Immature Granulocyte # (Auto) 0.02 K/uL Sodium Level 138 mmol/L Potassium Level 4.6 mmol/L Chloride Level 108 mmol/L Carbon Dioxide Level 25 mmol/L Anion Gap 5.0 mmol/L Blood Urea Nitrogen 12 mg/dl Creatinine 0.70 mg/dl Est Creatinine Clear Calc Drug Dose 46.2 ml/min Estimated GFR () 94.2 Estimated GFR (Non- 81.3 BUN/Creatinine Ratio 17.5 Random Glucose 81 mg/dl Calcium Level 8.5 mg/dl Total Bilirubin 7.3 mg/dl Aspartate Amino Transf (AST/SGOT) 62 U/L Alanine Aminotransferase (ALT/SGPT) 41 U/L Alkaline Phosphatase 307 U/L Total Protein 5.5 gm/dl Albumin 1.9 gm/dl Globulin 3.6 gm/dl Albumin/Globulin Ratio 0.5 Chemistry Specimen Hemolysis Date/Time Source Procedure Growth Status 04/22/17 19:38 Urine , Clean Catch Urine Culture - Preliminary NO GROWTH - LESS THAN 1,000 COLONIES/... 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 -continue ASA, Lisinopril -statin held HTN: -stable -continue Lisinopril Endometrial wall thickening: -Incidental finding on CT scan; will need outpatient pelvic US -Referral to OBGYN as outpatient DVT prophylaxis: -on Heparin SQ Current Inpatient Medications: Current Inpatient Medications Medications (Trade) Dose Ordered Sig/Nayeli Route Start Time Stop Time Status Last Admin Dose Admin Ioversol (Optiray 320) 100 ml UD PRN IV 04/22/17 15:45 04/26/17 15:44 Ondansetron HCl (Zofran Inj) 4 mg Q6H PRN IV 04/22/17 18:45 05/22/17 18:44 Ceftriaxone Sodium 1 gm/ Dextrose 50 ml @ 100 mls/hr Q24H IV 04/22/17 21:00 05/02/17 20:59 04/22/17 21:46 100 MLS/HR Docusate Sodium (coLACE CAP) 100 mg DAILY PO 04/23/17 09:00 05/23/17 08:59 04/23/17 10:10 100 MG Lisinopril (Zestril Tab) 5 mg QAM PO 04/23/17 09:00 05/23/17 08:59 04/23/17 10:10 5 MG Hydroxyzine HCl (Vistaril Tab) 25 mg Q6H PRN PO 04/22/17 19:15 05/22/17 19:14 Dextrose/Lactated Ringer's 1,000 ml @ 125 mls/hr Q8H IV 04/23/17 09:15 05/23/17 09:14 04/23/17 10:12 125 MLS/HR Calcium Carbonate (Tums Chew Tab) 1,000 mg TODAY@1830 PO 04/23/17 18:30 04/23/17 20:00
[2017-04-23] MEDS: CEFTRIAXONE SOD INJ 1 GM in DEXTROSE 5% ADD-VANTAGE 50ML 50 ML IV SCH (21:58)
[2017-04-24] MEDS: D5W AND LACTATED RINGERS 1,000 ML IV SCH (01:27)
[2017-04-24 03:23] VITALS: BP 165/80; PULSE 60; TEMP 36.7; O2SAT 98
[2017-04-24 06:56] LABS: MEAN CORPUSCULAR HGB CONC 33.7 g/dl (32-36)
[2017-04-24 07:05] LABS: HEMATOCRIT 30.3 % (37-47); MEAN CELL VOLUME 95.6 fL (80-100); MEAN CORPUSCULAR HEMOGLOBIN 32.2 pg (25-34); RED BLOOD COUNT 3.17 M/uL (4.2-5.4); WHITE BLOOD COUNT 3.71 K/uL (4.8-10.8)
[2017-04-24 07:10] VITALS: BP 183/62; PULSE 56; TEMP 36.9; O2SAT 99
[2017-04-24 07:25] LABS: MEAN PLATELET VOLUME 13.3 fL (7.4-10.4); PLATELET COUNT 133 K/uL (130-400)
[2017-04-24 07:26] LABS: BASO % 0.5 %; BASO ABS # 0.02 K/uL (0-0.2); COMPLETE YES; EOS % 3.8 %; IG% 0.5 %; LYMPH % 35.6 %; LYMPH ABS # 1.32 K/uL (1.2-3.4); MONO % 8.9 %; NEUT % 50.7 %; PLT ESTIMATE DECREASED; TARGET CELLS 1+
[2017-04-24 07:35] LABS: BUN/CREATININE RATIO 10.8 (10-20); CALCIUM 8.2 mg/dl (8.5-10.1); CREATININE 0.49 mg/dl (0.60-1.20)
[2017-04-24 07:38] LABS: ALB/GLOB RATIO 0.5 (0.9-2)
[2017-04-24 08:43] VITALS: BP 164/77; PULSE 64
[2017-04-24] MEDS: DOCUSATE SODIUM 100 MG CAP PO SCH (09:00)
[2017-04-24] MEDS: LISINOPRIL 5 MG TAB PO SCH (09:39)
--- NOTE | 2017-04-24 09:59 | Gastroenterology Progress Note ---
Progress Note Date of Service: Apr 24, 2017 Subjective Pt evaluation today including: conversation w/ patient, physical exam, chart review, lab review, review of studies, review of inpatient medication list Pt is AAOx3 in bed, denies any abd pain, n/v, appears mildly jaundiced. Afebrile overnight, LFTs trending down, H/H stable. Review of Systems Constitutional: No fever, No chills Respiratory: No cough, No shortness of breath Cardiac: No chest pain, No edema Abdomen: No pain, No nausea, No vomiting, No GI bleeding Skin: + jaundice, No rash, No itch Medications Current Inpatient Medications Medications (Trade) Dose Ordered Sig/Nayeli Route Start Time Stop Time Status Last Admin Dose Admin Ioversol (Optiray 320) 100 ml UD PRN IV 04/22/17 15:45 04/26/17 15:44 Ondansetron HCl (Zofran Inj) 4 mg Q6H PRN IV 04/22/17 18:45 05/22/17 18:44 Ceftriaxone Sodium 1 gm/ Dextrose 50 ml @ 100 mls/hr Q24H IV 04/22/17 21:00 05/02/17 20:59 04/23/17 21:58 100 MLS/HR Docusate Sodium (coLACE CAP) 100 mg DAILY PO 04/23/17 09:00 05/23/17 08:59 04/23/17 10:10 100 MG Lisinopril (Zestril Tab) 5 mg QAM PO 04/23/17 09:00 05/23/17 08:59 04/24/17 09:39 5 MG Hydroxyzine HCl (Vistaril Tab) 25 mg Q6H PRN PO 04/22/17 19:15 05/22/17 19:14 Objective Vital Signs Date Time Temp Pulse Resp B/P (MAP) Pulse Ox O2 Delivery O2 Flow Rate FiO2 04/24/17 08:43 64 164/77 (106) 04/24/17 07:10 36.9 56 16 183/62 (102) 99 Room Air 04/24/17 03:23 36.7 60 16 165/80 (108) 98 Room Air 04/23/17 23:55 Room Air 04/23/17 23:40 36.4 54 14 133/76 (95) 98 Room Air 04/23/17 16:00 96 Room Air 04/23/17 15:45 36.5 63 16 158/66 (96) 96 Room Air 04/23/17 12:56 36.6 63 18 174/68 (103) 97 Room Air 04/23/17 12:09 36.9 58 17 161/59 (93) 96 Room Air 04/23/17 10:59 36.5 54 18 162/57 (92) 96 Room Air 04/23/17 10:25 36.9 61 18 150/75 (100) 98 Room Air 04/23/17 10:00 36.3 65 16 156/66 (96) 96 Room Air 04/23/17 10:00 96 Room Air Physical Exam General Appearance: WD/WN, no apparent distress Eyes: normal inspection, PERRL, EOMI Neck: supple, no JVD, trachea midline Respiratory/Chest: normal breath sounds, no respiratory distress, no accessory muscle use Cardiovascular: regular rate, rhythm, no gallop, no murmur Abdomen: normal bowel sounds, non tender, soft Extremities: normal inspection, no pedal edema, no calf tenderness Neurologic/Psych: alert, normal mood/affect, oriented x 3 Skin: normal color, no rash, + jaundice (mild) Laboratory Results Last 24 Hours Test 04/24/17 06:24 White Blood Count 3.71 K/uL Red Blood Count 3.17 M/uL Hemoglobin 10.2 g/dL Hematocrit 30.3 % Mean Corpuscular Volume 95.6 fL Mean Corpuscular Hemoglobin 32.2 pg Mean Corpuscular Hemoglobin Concent 33.7 g/dl Platelet Count 133 K/uL Mean Platelet Volume 13.3 fL Neutrophils (%) (Auto) 50.7 % Lymphocytes (%) (Auto) 35.6 % Monocytes (%) (Auto) 8.9 % Eosinophils (%) (Auto) 3.8 % Basophils (%) (Auto) 0.5 % Neutrophils # (Auto) 1.88 K/uL Lymphocytes # (Auto) 1.32 K/uL Monocytes # (Auto) 0.33 K/uL Eosinophils # (Auto) 0.14 K/uL Basophils # (Auto) 0.02 K/uL RDW Standard Deviation 50.2 fL RDW Coefficient of Variation 14.5 % Immature Granulocyte % (Auto) 0.5 % Immature Granulocyte # (Auto) 0.02 K/uL Platelet Estimate DECREASED Target Cells 1+ Sodium Level 143 mmol/L Potassium Level 4.0 mmol/L Chloride Level 111 mmol/L Carbon Dioxide Level 26 mmol/L Anion Gap 6.0 mmol/L Blood Urea Nitrogen 5 mg/dl Creatinine 0.49 mg/dl Est Creatinine Clear Calc Drug Dose 66.0 ml/min Estimated GFR () 105.9 Estimated GFR (Non- 91.4 BUN/Creatinine Ratio 10.8 Random Glucose 111 mg/dl Calcium Level 8.2 mg/dl Total Bilirubin 4.6 mg/dl Aspartate Amino Transf (AST/SGOT) 45 U/L Alanine Aminotransferase (ALT/SGPT) 35 U/L Alkaline Phosphatase 264 U/L Total Protein 5.4 gm/dl Albumin 1.9 gm/dl Globulin 3.5 gm/dl Albumin/Globulin Ratio 0.5 Lipase 89 U/L Assessment and Plan Pt is a 81 y/o female w painless jaundice, CT evidence of biliary obstruction. Blood and urine cx negative. She is s/p ERCP w choledocholithiasis removal and sphincterectomy on 04/23. Afebrile, H/H stable, LFTs trending down and she is tolerating [place] diet w/o abd pain, n/v - Advanced to regular, heart healthy diet. - OK for DC from GI standpoint today w f/u labs to trend CBC, LFTs w PCP within a week; also continue antibx coverage to prevent cholangitis (ok with quinolones ) x 7-10 days total. Late entry: Patient was seen and examined with Edel Mcallister on 04/24. Her note reflects our findings and plan.
--- NOTE | 2017-04-24 14:42 | Discharge Instructions ---
Discharge Instructions Date of Service Apr 24, 2017. Admission Reason for Admission: Jaundice Discharge Discharge Diagnosis / Problem: Choledocholithiasis Discharge Goals Goal(s): Therapeutic intervention Activity Recommendations Activity Limitations: resume your previous activity Exercise/Sports Limitations: gradually increase as tolerated . Instructions / Follow-Up Instructions / Follow-Up Please see Dr. Maria on , April 27 at 12:45PM for follow up post discharge Please follow up with GI as scheduled. Please have labs drawn at your follow up appt. (ideally 1 week from discharge) Please do no resume simvastatin until after you have labs and have seen your Primary care physician Current Hospital Diet Patient's current hospital diet: AHA Diet (Heart Healthy) Discharge Diet Recommended Diet: AHA Diet (Heart Healthy) Procedures Procedures Performed: Endoscopic retrograde cholangiopancreatography, sphincterotomy, dilation, stone removal Pending Studies Studies pending at discharge: no Medical Emergencies . Who to Call and When: Medical Emergencies: If at any time you feel your situation is an emergency, please call 911 immediately. . Non-Emergent Contact Non-Emergency issues call your: Primary Care Provider . . "Provider Documentation" section prepared by Brie Cordero. . VTE Core Measure Inpt VTE Proph given/why not?: SCD's
[2017-04-24] MEDS ORDERED: CIPR1TAB10 PO (14:57)
[2017-04-24] MEDS ORDERED: LCTX PO (14:57)
--- NOTE | 2017-04-24 15:00 | Discharge Summary ---
Discharge Summary Date of Service Apr 24, 2017. Discharge Summary Admission Date: Apr 22, 2017 at 18:47 Discharge Date: Apr 24, 2017 Discharge Disposition: Home Principal Diagnosis: Choledocholithiasis Procedures: ERCP Pending Studies/Follow-Up: LFTs in 1 week, gynecology referral re: incidental endometrial thickening on imaging Medication Reconciliation New Medications: Ciprofloxacin Hcl (Cipro) 500 Mg Tab 1 TAB PO BID, #17 TAB Lactobacillus Acidophilus (Floranex) 1 Tab Tab 1 TAB PO BID, #60 TABS Continued Medications: Aspirin (Aspirin Ec) 81 Mg Tab 81 MG PO DAILY Docusate Sodium (Docusate Sodium) 100 Mg Cap 1 CAP PO DAILY for 30 Days, #30 CAP Lisinopril (Zestril) 5 Mg Tab 5 MG PO QAM for 90 Days, TAB Discontinued Medications: Simvastatin (Zocor) 20 Mg Tab 20 MG PO PM for 90 Days, TAB Admission Information HPI (per Admitting provider): Patient is a 81 Yr female with PMH of CVA with residual left sided weakness, HTN, cholelithiasis S/P cholecystectomy in 2008 presents with worsening Jaundice since 7 days duration. Patient was recently treated for a possible UTI with Bactrim by her PCP which she completed the course. She reports generalized weakness, dizziness and worsening itchiness of skin since 7 days. Also states having nausea, chills and ? [place] colored urine. Denies any history of chest pain, SOB, fever, vomiting, abdominal pain, diarrhea, cough, bleeding in stools. CT abdomen is suggestive of possible CBD stone. 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, alert, normal mood/affect, oriented x 3, + pertinent finding (Vision loss on lateral side, grossly no focal deficits) Skin: warm/dry, no rash, + jaundice, + pertinent finding (Excoriations on extrtemities ) Hospital Course Obstructive Jaundice: -secondary to recurrent choledocholithiasis -S/P Cholecystectomy in 2009 -S/P ERCP; with evidence of purulent material POD#1 -continued ceftriaxone -GI consulted, appreciate management -LFTs trending down -jaundice and icteric sclera noted, improving -hold statin -continue on IV fluids, clear liquid diet, advance as tolerated -Atarax PRN for itching Recent UTI: -Completed Bactrim as outpatient -Urine cx negative H/O CVA: -has residual left sided weakness and visual loss -continue ASA, Lisinopril -statin held HTN: -stable -continue Lisinopril Endometrial wall thickening: -Incidental finding on CT scan; will need outpatient pelvic US -Referral to OBGYN as outpatient DVT prophylaxis: -on Heparin SQ PHYSICAL EXAM ON DAY OF DISCHARGE: GENERAL: Patient is in no acute distress. HEENT: No acute trauma, mucous membranes moist, no nasal congestion, slight scleral icterus. NECK: No stridor, trachea is midline. LUNGS: Clear to auscultation bilaterally, no wheeze, no rhonchi, breath sounds equal. HEART: Without murmurs gallops or rubs, regular rate and rhythm. ABDOMEN: Soft, nontender, bowel sounds positive EXTREMITIES: No cyanosis or edema NEUROLOGIC: Oriented x 3, no acute motor or sensory deficits, no focal weakness. SKIN: No rash, no jaundice, no diaphoresis. Total time spent on discharge = 35 This includes examination of the patient, discharge planning, medication reconciliation, and communication with other providers. Discharge Instructions 04/24/17 06:24 Red Blood Count 3.17, Mean Corpuscular Volume 95.6, Mean Corpuscular Hemoglobin 32.2, Mean Corpuscular Hemoglobin Concent 33.7, Mean Platelet Volume 13.3, Neutrophils (%) (Auto) 50.7, Lymphocytes (%) (Auto) 35.6, Monocytes (%) (Auto) 8.9, Eosinophils (%) (Auto) 3.8, Basophils (%) (Auto) 0.5, Neutrophils # (Auto) 1.88, Lymphocytes # (Auto) 1.32, Monocytes # (Auto) 0.33, Eosinophils # (Auto) 0.14, Basophils # (Auto) 0.02 04/24/17 06:24 Test 04/24/17 06:24 White Blood Count 3.71 K/uL (4.8-10.8) Red Blood Count 3.17 M/uL (4.2-5.4) Hemoglobin 10.2 g/dL (12.0-16.0) Hematocrit 30.3 % (37-47) Mean Corpuscular Volume 95.6 fL (80-100) Mean Corpuscular Hemoglobin 32.2 pg (25-34) Mean Corpuscular Hemoglobin Concent 33.7 g/dl (32-36) Platelet Count 133 K/uL (130-400) Mean Platelet Volume 13.3 fL (7.4-10.4) Neutrophils (%) (Auto) 50.7 % Lymphocytes (%) (Auto) 35.6 % Monocytes (%) (Auto) 8.9 % Eosinophils (%) (Auto) 3.8 % Basophils (%) (Auto) 0.5 % Neutrophils # (Auto) 1.88 K/uL (1.4-6.5) Lymphocytes # (Auto) 1.32 K/uL (1.2-3.4) Monocytes # (Auto) 0.33 K/uL (0.11-0.59) Eosinophils # (Auto) 0.14 K/uL (0-0.5) Basophils # (Auto) 0.02 K/uL (0-0.2) RDW Standard Deviation 50.2 fL (36.4-46.3) RDW Coefficient of Variation 14.5 % (11.5-14.5) Immature Granulocyte % (Auto) 0.5 % Immature Granulocyte # (Auto) 0.02 K/uL (0.00-0.02) Platelet Estimate DECREASED Target Cells 1+ Anion Gap 6.0 mmol/L (3-11) Est Creatinine Clear Calc Drug Dose 66.0 ml/min Estimated GFR () 105.9 Estimated GFR (Non- 91.4 BUN/Creatinine Ratio 10.8 (10-20) Calcium Level 8.2 mg/dl (8.5-10.1) Total Bilirubin 4.6 mg/dl (0.2-1) Aspartate Amino Transf (AST/SGOT) 45 U/L (15-37) Alanine Aminotransferase (ALT/SGPT) 35 U/L (12-78) Alkaline Phosphatase 264 U/L (45-117) Total Protein 5.4 gm/dl (6.4-8.2) Albumin 1.9 gm/dl (3.4-5.0) Globulin 3.5 gm/dl (2.5-4.0) Albumin/Globulin Ratio 0.5 (0.9-2) Lipase 89 U/L (73-393)
[2017-04-24 15:08] VITALS: BP 169/74; PULSE 72; TEMP 37; O2SAT 97
[2017-04-24 15:41] VITALS: BP 169/74; PULSE 72; TEMP 37; O2SAT 97
--- NOTE | 2017-06-08 00:15 | GI REPORT ---
Procedure Date: 04/23/2017 7:56 AM Procedure: ERCP Indications: Biliary dilation on Computed Tomogram Scan, Bile duct stone on Computed Tomogram Scan, Jaundice, Prior biliary endoscopic sphincterotomy with stone removal (2008) Medicines: General Anesthesia, Indomethicin 100 mg rectal Complications: No immediate complications. Estimated blood loss: None Estimated Blood Loss: Estimated blood loss: none. Procedure: Pre-Anesthesia Assessment: - Prior to the procedure, a History and Physical was performed, and patient medications, allergies and sensitivities were reviewed. The patient's tolerance of previous anesthesia was reviewed. - ASA Grade Assessment: III - A patient with severe systemic disease. After obtaining informed consent, the scope was passed under direct vision. Throughout the procedure, the patient's blood pressure, pulse, and oxygen saturations were monitored continuously. The Scope was introduced through the mouth, and advanced to the duodenum and used to inject contrast into the bile duct. The ERCP was accomplished with ease. The patient tolerated the procedure well. Findings: A vault keeper film of the abdomen was obtained. Surgical clips, consistent with previous cholecystectomy, were seen in the area of the right upper quadrant of the abdomen. The esophagus was successfully intubated under direct vision without detailed examination of the pharynx, larynx, and associated structures, and upper GI tract. The upper GI tract was grossly normal. The major papilla was bulging. A [employer] Acrobat 0.035 inch guidewire was passed into the biliary tree through a [employer] Omni FS 35 sphincterotome. The sphincterotome was passed over the guidewire and the bile duct was then deeply cannulated. Sludge with a pus like appearance was seen oozing from the papilla. Contrast was injected. The main bile duct was diffusely dilated. The lower third of the main bile duct contained one long stone, which was 9 mm in diameter. A 10 mm biliary sphincterotomy was made with a monofilament traction (standard) sphincterotome using ERBE electrocautery. There was no post-sphincterotomy bleeding. Dilation of the sphinterotomy and the distal common bile duct was performed with an 8 mm balloon dilator inflated for five minutes. The biliary tree was swept many times with a 12 mm balloon starting at the bifurcation. Sludge and a large soft stone was swept from the duct. All stones were removed. The duct was then irrigated with 20 mL of saline. The total fluoroscopy exposure time was 2 minutes and 38 seconds. Impression: - The major papilla appeared to be bulging. - The entire main bile duct was dilated, and contained stones and pus like sludge - A sphincterotomy was performed. - Common bile duct was successfully dilated - The biliary tree was swept. - Choledocholithiasis was found. Complete removal was accomplished by biliary sphincterotomy and balloon extraction. Recommendation: - Return patient to [facility] for ongoing care. Tra Pimentel M.D. Tra Pimentel MD 04/23/2017 8:58:19 AM Note Initiated On: 04/23/2017 7:56 AM I attest to the content of the Intraoperative Record and orders documented therein, exceptions below
== END 2017-04-24 15:58 | disposition home or self-care (01) | DRG 445 ==
LOC: C.EDB 15:25 → C.MSW 18:47 → EDBEDREQ 18:52 → ENRESERV 19:03
PROVIDERS: ADMIT Internal Medicine; ATTEND Internal Medicine
PROC: 0FC98ZZ Extirpation of Matter from Common Bile Duct, Via Natural or Artificial Opening Endoscopic (ICD-10-PCS; principal; 2017-04-23 08:00)
PROC: 0F798ZZ Dilation of Common Bile Duct, Via Natural or Artificial Opening Endoscopic (ICD-10-PCS; principal; 2017-04-23 08:00)
DX: K80.51 Calculus of bile duct without cholangitis or cholecystitis with obstruction (principal); I69.354 Hemiplegia and hemiparesis following cerebral infarction affecting left non-dominant side; R93.8 Abnormal findings on diagnostic imaging of other specified body structures; R12 Heartburn; I10 Essential (primary) hypertension; E78.5 Hyperlipidemia, unspecified; H54.7 Unspecified visual loss; Z90.49 Acquired absence of other specified parts of digestive tract; Z79.82 Long term (current) use of aspirin; Z79.899 Other long term (current) drug therapy

== ENCOUNTER 2018-12-11 14:24 | Inpatient (IN) ==
[2018-12-11] MEDS ORDERED: guaiFENesin 600 MG TABCR PO STA (16:15)
[2018-12-11] MEDS ORDERED: ALBUT/IPRATROP 3MG/0.5MG NEB 3 ML VIAL NEB STA (16:15)
[2018-12-11] MEDS ORDERED: SODIUM CHLORIDE 0.9% 500 ML IV SCH (16:15)
[2018-12-11] MEDS ORDERED: SODIUM CHLORIDE 0.65% NA SOLN 45 ML (OCEAN) ONE (16:15)
[2018-12-11 16:36] LABS: Basophils # (auto) 0.02 K/uL (0-0.2); Basophils % (auto) 0.5 %; Hematocrit (blood only) 44.2 % (37-47); Hemoglobin 15.4 g/dL (12.0-16.0); Immature Granulocytes # (auto) 0.02 K/uL (0.00-0.02); Immature Granulocytes % (auto) 0.5 %; Lymphocytes # (auto) 1.04 K/uL (1.2-3.4); Lymphocytes % (auto) 23.7 %; Mean Corpuscular Hgb Conc 34.8 g/dL (32-36); Mean Corpuscular Volume 92.5 fL (80-100); Monocytes # (auto) 0.74 K/uL (0.11-0.59); Monocytes % (auto) 16.9 %; Neutrophils # (auto) 2.56 K/uL (1.4-6.5); Neutrophils % (auto) 58.4 %; Platelet Count 159 K/uL (130-400); RDW Coefficient of Variation 13.5 % (11.5-14.5); RDW Standard Deviation 45.8 fL (36.4-46.3); Red Blood Count 4.78 M/uL (4.2-5.4); White Blood Count 4.38 K/uL (4.8-10.8)
--- NOTE | 2018-12-11 16:37 | XRay Report ---
XR chest 1V portable CLINICAL HISTORY: Chest pain. Cough. COMPARISON STUDY: Chest radiograph September 11, 2016. FINDINGS: Lung volumes are normal. There is no pneumothorax or pleural effusion. There is no consolid ation or evidence for pulmonary edema. Mild left basilar opacity favors atelectasis. Cardiomediastina l silhouette is stable. IMPRESSION: No acute cardiopulmonary findings. Electronically signed by: Tereso Colby M.D. 12/11/2018 4:36 PM
[2018-12-11 16:53] LABS: Albumin Level 3.3 gm/dl (3.4-5.0); BUN Creatinine Ratio 18.8 (10-20); Calcium 8.4 mg/dl (8.5-10.1); Creatinine Clr Calc Pharmacy 14.6 ml/min; Est GFR (African American) 22.4; Est GFR (Non-African American) 19.4; Magnesium 2.4 mg/dl (1.8-2.4); Potassium 3.4 mmol/L (3.5-5.1)
[2018-12-11 16:58] LABS: Albumin Globulin Ratio 0.7 (0.9-2); Bilirubin,Total 0.3 mg/dl (0.2-1); Globulin 4.5 gm/dl (2.5-4.0); Total Protein 7.8 gm/dl (6.4-8.2); Troponin I 0.023 ng/ml (0-0.045)
[2018-12-11 17:08] LABS: Influenza B virus by PCR Neg for Influ B (Neg)
[2018-12-11] MEDS ORDERED: SODIUM CHLORIDE 0.9% 1000ML 1,000 ML IV STA (17:12)
--- NOTE | 2018-12-11 17:13 | Emergency Department Note ---
Entered by Qian Watters acting as a scribe for Mateo Clifford MD History of Present Illness General Chief complaint: Illness Stated complaint: DIARRHEA,VOMITING,FEVER,COUGH Time Seen by Provider: 12/11/18 16:00 Source: patient Mode of arrival: ambulatory Limitations: no limitations History of Present Illness Provider complaint: flu-like symptoms Onset (ago): week(s) 2 Location: head (generalized) Pain Consistency: + other (persistent) Maximum Pain Intensity: 0 Quality: + other (flu-like) Associated symptoms: + denies other symptoms (congestion), + cough, + nausea/ vomiting and + other (diarrhea) The patient is an 82 year old female who presents to the Emergency Room with complaints of persistent flu-like symptoms that began 2 weeks ago. The patient reports that she has been nauseous, vomiting, coughing, congested and having episodes of diarrhea. She states that she last vomited yesterday. She denies a history of COPD but notes she has a history of hypertension. She denies being on any blood thinners. Home Medications Home Medications Medication Instructions Recorded Confirmed Type aspirin 325 mg PO DAILY 12/11/18 12/11/18 History docusate sodium 100 mg PO DAILY 12/11/18 12/11/18 History lisinopril 5 mg PO DAILY 12/11/18 12/11/18 History simvastatin [Zocor] 20 mg PO HS 12/11/18 12/11/18 History Allergies Allergy/AdvReac Type Severity Reaction Status Date / Time bee venom protein (honey bee) Allergy Mild RASH/WELTS Unverified 12/11/18 17:09 Penicillins Allergy Mild OTHER Verified 12/11/18 17:09 Past Med/Surg History Medical History Stroke (Resolved) Hypertension (Chronic) HLD (hyperlipidemia) (Chronic) Social History Feels Safe at Home: Yes Smoking Status: Never smoker Preferred Language: Albanian Review of Systems See HPI for pertinent positives & negatives. and A total of 10 systems reviewed and were otherwise negative Physical Exam Vital Signs Vital Signs - 24 hr 12/11/18 14:48 12/11/18 16:44 12/11/18 16:45 Temperature 37.0 C Temperature Source Oral Sepsis Recent Fever Within 48 Hours No Sepsis New/Unexplained Change in Mental Status No Sepsis Action Taken by Nursing No Action Required Pulse Rate 69 Pulse Rate [Finger] 70 Respiratory Rate 17 20 Blood Pressure 100/60 Blood Pressure [Right Arm] 154/68 H Blood Pressure Mean 73 Blood Pressure Mean [Right Arm] 96 Blood Pressure Position Sitting Pulse Oximetry 93 93 Oxygen Delivery Method Room Air Room Air 12/11/18 18:16 12/11/18 19:36 12/11/18 20:11 Temperature Temperature Source Sepsis Recent Fever Within 48 Hours Sepsis New/Unexplained Change in Mental Status Sepsis Action Taken by Nursing Pulse Rate Pulse Rate [Finger] 72 72 77 Respiratory Rate 20 20 22 Blood Pressure Blood Pressure [Right Arm] 132/59 L 118/99 152/70 H Blood Pressure Mean Blood Pressure Mean [Right Arm] 83 105 97 Blood Pressure Position Pulse Oximetry 93 95 98 Oxygen Delivery Method Room Air Room Air Room Air GENERAL: Awake, alert, fatigued appearing, in no distress HENT: Normocephalic, atraumatic. Oropharynx with dry mucous membranes and otherwise unremarkable. EYES: Normal conjunctiva. Sclera non-icteric. NECK: Supple. No nuchal rigidity. FROM. No JVD. RESPIRATORY: Scattered intermittent wheezes. CARDIAC: Regular rate, normal rhythm. Extremities warm and well perfused. Pulses equal. ABDOMEN: Soft, non-distended. No tenderness to palpation. No rebound or guarding. No masses. RECTAL: Deferred. MUSCULOSKELETAL: Chest examination reveals no tenderness. The back is symmetrical on inspection without obvious abnormality. There is no CVA tenderness to palpation. No joint edema. LOWER EXTREMITIES: Calves are equal size bilaterally and non-tender. No edema. No discoloration. NEURO: Normal sensorium. No sensory or motor deficits noted. SKIN: No rash or jaundice noted. Course 1611: Past medical records reviewed. The patient was evaluated in room C10, and a complete history and physical examination were performed. I reviewed the patient's case with [] - [facility] Hospitalist. [] will evaluate the patient for further management. Administered Medications Sodium Chloride (Nss 1000ml) 1,000 mls @ 125 mls/hr IV .Q8H STA Stop: 12/12/18 01:11 Last Admin: 12/11/18 17:40 Dose: 125 mls/hr Discontinued Medications Albuterol (Duoneb) 3 ml NEB NOW STA Stop: 12/11/18 16:16 Last Admin: 12/11/18 16:42 Dose: 3 ml Guaifenesin (Mucinex) 600 mg PO NOW STA Stop: 12/11/18 16:16 Last Admin: 12/11/18 16:42 Dose: 600 mg Sodium Chloride (Nss) 500 mls @ 999 mls/hr IV .Q31M ALBERTO Stop: 12/11/18 16:45 Last Infusion: 12/11/18 17:34 Dose: 0 mls/hr Admin: 12/11/18 16:42 Dose: 999 mls/hr Oseltamivir Phosphate (Tamiflu) 30 mg PO NOW STA; Protocol Stop: 12/11/18 17:35 Last Admin: 12/11/18 18:19 Dose: 30 mg Potassium Chloride (Klor-Con M10) Confirm Administered Dose 20 meq PO .STK-MED ONE Stop: 12/11/18 20:07 Last Admin: 12/11/18 20:08 Dose: 20 meq Sodium Chloride ([place] Nasal) 2 sprays NA NOW ONE Stop: 12/11/18 16:16 Last Admin: 12/11/18 16:42 Dose: 225 sprays Medical Decision Making Differential Diagnosis Differential diagnoses includes but is not limited to pneumonia, bronchitis, COPD/Asthma exacerbation, pneumothorax, pulmonary embolism, congestive heart failure, and acute coronary syndrome. Medical Records Attestation: I reviewed the patient's medical records. Home Medications Current Medication List: was personally reviewed by me Laboratory Data Attestation: I reviewed the patient's lab results. Result diagrams: 12/11/18 16:25 12/11/18 16:25 Lab Results 12/11/18 12/11/18 12/11/18 Range/Units 16:20 16:25 16:25 WBC 4.38 L (4.8-10.8) K/uL RBC 4.78 (4.2-5.4) M/uL Hgb 15.4 (12.0-16.0) g/dL Hct 44.2 (37-47) % MCV 92.5 (80-100) fL MCH 32.2 (25-34) pg MCHC 34.8 (32-36) g/dL RDW Std Deviation 45.8 (36.4-46.3) fL RDW Coeff of Martha 13.5 (11.5-14.5) % Plt Count 159 (130-400) K/uL MPV 12.0 H (7.4-10.4) fL Immature Gran % (Auto) 0.5 % Neut % (Auto) 58.4 % Lymph % (Auto) 23.7 % [place] % (Auto) 16.9 % Eos % (Auto) 0.0 % Baso % (Auto) 0.5 % Immature Gran # (Auto) 0.02 (0.00-0.02) K/uL Neut # (Auto) 2.56 (1.4-6.5) K/uL Lymph # (Auto) 1.04 L (1.2-3.4) K/uL [place] # (Auto) 0.74 H (0.11-0.59) K/uL Eos # (Auto) 0.00 (0-0.5) K/uL Baso # (Auto) 0.02 (0-0.2) K/uL Sodium 136 (136-145) mmol/L Potassium 3.4 L (3.5-5.1) mmol/L Chloride 99 (98-107) mmol/L Carbon Dioxide 27 (21-32) mmol/L Anion Gap 10.0 (3-11) BUN 43 H (7-18) mg/dl Creatinine 2.28 H (0.6-1.2) mg/dl Est Cr Clr Drug Dosing 14.6 ml/min Est GFR ( Amer) 22.4 Est GFR (Non-Af Amer) 19.4 BUN/Creatinine Ratio 18.8 (10-20) Glucose 106 H (70-99) mg/dl Calcium 8.4 L (8.5-10.1) mg/dl Magnesium 2.4 (1.8-2.4) mg/dl Total Bilirubin 0.3 (0.2-1) mg/dl AST 85 H (15-37) U/L ALT 40 (12-78) U/L Alkaline Phosphatase 71 (45-117) U/L Troponin I 0.023 (0-0.045) ng/ml Total Protein 7.8 (6.4-8.2) gm/dl Albumin 3.3 L (3.4-5.0) gm/dl Globulin 4.5 H (2.5-4.0) gm/dl Albumin/Globulin Ratio 0.7 L (0.9-2) Lipase 451 H (73-393) U/L Influenza Type A (PCR) Pos for Influ A A* (Neg) Influenza Type B (PCR) Neg for Influ B (Neg) Imaging Data Radiologist's Impression: Radiology results as stated below per my review and the radiologist's interpretation: XR chest 1V portable CLINICAL HISTORY: Chest pain. Cough. COMPARISON STUDY: Chest radiograph September 11, 2016. FINDINGS: Lung volumes are normal. There is no pneumothorax or pleural effusion. There is no consolidation or evidence for pulmonary edema. Mild left basilar opacity favors atelectasis. Cardiomediastinal silhouette is stable. IMPRESSION: No acute cardiopulmonary findings. Electronically signed by: Tereso Colby M.D. 12/11/2018 4:36 PM ECG Data Attestation: I personally reviewed and interpreted this ECG as follows: Indication: SOB/dyspnea Rate (beats per minute): 70 Rhythm: sinus with SA Findings: + other (normal axis); no acute ischemic change Blood Pressure Blood Pressure Findings: Elevated blood pressure Blood Pressure Disposition: further management by hospitalist KARLEY Narrative The patient is a pleasant 82-year-old woman with a past medical history of hypertension, hyperlipidemia who presents to the emergency department with cough , congestion, nausea, vomiting, diarrhea worse over the past several days in the setting of congestion over the past couple of weeks per hpi. On arrival the patient is uncomfortable but no acute distress, afebrile stable vital signs. On exam the patient appears clinically dry. She has scattered intermittent wheezes. EKG without acute ischemia. Chest x-ray negative for pneumonia. WBC 4.3, nonspecific. H/H and platelet within normal limits. Chemistry does demonstrate acute renal failure with creatinine of 2.2 which is increased from creatinine of 0.9 on 10/03/2018 in [place] system. Troponin within normal limits at 0.02. The patient is influenza A positive. Renally dosed Tamiflu ordered. The patient's acute renal failure in the setting of influenza A reasonable to admit this elderly patient for further management. I did review the patient's findings and recommendations with her and her granddaughter at the bedside. The patient initially was refusing admission and tearful because she "hates hospitals". However, her granddaughter was also encouraging and recommending she stay for admission to which she was ultimately agreeable. Case d/w Nataly Leon, [facility] PAC, who will evaluate the patient for admission. Impression & Plan Acute renal failure, Influenza A Discharge Plan Visit Data Chief Complaint: Illness Stated Complaint: DIARRHEA,VOMITING,FEVER,COUGH Other Complaint: Vomiting ED Provider: Mateo Clifford Discharge Problem: Acute renal failure, Influenza A Patient Disposition: Being Evaluated by Hospitalist Discharge Instructions Interventions: ED Discharge Assessment Last Done: 12/11/18 20:12 The scribe's documentation has been prepared under my direction and personally reviewed by me in its entirety. I confirm that the note above accurately reflects all work, treatment, procedures, and medical decision making performed by me.
[2018-12-11] MEDS ORDERED: OSELTAMIVIR PHOSPHATE SUSP 30 MG/5 ML UDP PO STA (17:34)
[2018-12-11] MEDS ORDERED: POTASSIUM CHLORIDE 10 MEQ TABCR PO ONE (20:06)
[2018-12-11] MEDS ORDERED: SIMVASTATIN 20 MG TAB PO SCH (21:05)
[2018-12-11] MEDS ORDERED: ACETAMINOPHEN 325 MG TAB PO PRN (21:05)
[2018-12-11] MEDS ORDERED: ALBUT/IPRATROP 3MG/0.5MG NEB 3 ML VIAL NEB PRN (21:05)
[2018-12-11] MEDS ORDERED: POTASSIUM CHLORIDE 20 MEQ TABCR PO STA (21:05)
--- NOTE | 2018-12-11 21:24 | History & Physical Report ---
Date of Service December 11, 2018 Assessment & Plan (1) Influenza A: Pt with reported URI symptoms started 2 weeks ago and improved 4 days ago with return of cough starting yesterday. Today increased weakness. No known fevers. In ER was afebrile, P: 69, R: 17, BP: 100/60, 93% on RA. WBC: 5. +Influenza A. CXR: no acute changes. Was given albuterol neb, guaifenesin, tamiflu, 500ml NSS. -Tamiflu renal dosed -Duonebs prn -IVF -Maintaining oxygen sats in low 90's at rest -monitor, supplemental oxygen if needed (2) Acute renal failure: BUN: 43, Cr: 2.2 (baseline Cr 0.9 with baseline GFR >60). Pt with poor oral intake past 4 days and had Vomiting and diarrhea. Pt appears dry on exam -IVF -monitor renal functions -avoid nephrotoxic agents when possible -if no improvement consider nephrology consult (3) Hypokalemia: K: 3.4 -replace and monitor (4) Diarrhea: Reported 4 days ago started with N/V/D. Had 3-4 episodes of diarrhea daily which slowed down yesterday and one very small diarrhea this am, none since. Had couple episodes of vomiting 3 days ago, none since. Has had decreased oral intake. Denies abdominal pain. +household contacts with N/V/D recently. Denies recent antibiotic use, recent travel or eating undercooked foods WBC: 4, AST: 85, ALT: 40, lipase: 451. No abdominal pain on exam. -at this time monitor for further diarrhea and if would occur consider stool studies, c-diff -IVF -clear liquid diet and advance as tolerated -if would develop abdominal pain consider further workup -monitor cbc, cmp (5) Hypertension: BPs in ER 100/60, 154/68, 132/59 -monitor BP -hold lisinopril with FELIZ (6) Stroke: Hx CVA -continue ASA, statin (7) HLD (hyperlipidemia): -continue statin DVT Prophylaxis -Heparin SQ DNR/DNI as per discussion with pt and pt's daughter Follows with Dr Maria for routine care Pt was seen with Dr Potter. See addendum History of Present Illness Chief Complaint: "illness" Primary Care Provider: Janet Maria PT is 82 y/o F with PMH CVA, HTN, dyslipidemia presented to ER with c/o illness. Pt states 4 days ago started with N/V/D. Had 3-4 episodes of diarrhea daily which slowed down yesterday and one very small diarrhea this am. Had couple episodes of vomiting 3 days ago, none since. Has had decreased oral intake. Denies abdominal pain. She states 2 weeks ago with nasal congestion, cough and felt like cough improved several days ago however yesterday started with increased cough again. Today feeling generalized weakness and this morning felt lightheaded. Denies CP, SOB. Reports grandchildren had N/V/D also. Other family members with URI symptoms. Denies influenza vaccine this season. Denies fever/chills, diaphoresis, ANAYA, syncope, vision changes, neck pain, orthopnea, palpitations, hemoptysis, sore throat, choking, paresthesias, extremity edema, rashes, urinary symptoms. In ER was afebrile, P: 69, R: 17, BP: 100/60, 93% on RA. WBC: 5. K: 3.4, BUN: 43 , Cr: 2.2 (baseline 0.9), magnesium: 2.4, +Influenza A. CXR: no acute changes. Was given albuterol neb, guaifenesin, tamiflu, 500ml NSS. Allergies Allergy/AdvReac Type Severity Reaction Status Date / Time bee venom protein (honey bee) Allergy Mild RASH/WELTS Unverified 12/11/18 17:09 Penicillins Allergy Mild OTHER Verified 12/11/18 17:09 Home Medications Home Medications Medication Instructions Recorded Confirmed Type aspirin 325 mg PO DAILY 12/11/18 12/11/18 History docusate sodium 100 mg PO DAILY 12/11/18 12/11/18 History lisinopril 5 mg PO DAILY 12/11/18 12/11/18 History simvastatin [Zocor] 20 mg PO HS 12/11/18 12/11/18 History Past Med/Surg History Medical History Stroke (Chronic) Hypertension (Chronic) HLD (hyperlipidemia) (Chronic) Surgical History Hx of tonsillectomy (Resolved) History of cholecystectomy (Resolved) Social History Current Living Situation: Family Other Information That Helps Us Care for You: No Feels Safe at Home: Yes Smoking Status: Never smoker Hx Alcohol Use: No Hx Substance Use: No Beliefs That Will Affect Care: None Preferred Language: Hebrew Review of Systems All systems reviewed & are unremarkable except as noted in HPI & below Physical Exam 2 Vital Signs (Past 24 Hours): Last Vital Signs Temp 37.0 C 12/11/18 14:48 Pulse 77 12/11/18 20:11 Resp 22 12/11/18 20:11 BP 152/70 H 12/11/18 20:11 Pulse Ox 98 12/11/18 20:11 Physical Exam: General: no acute distress, obese Head: normocephalic, atraumatic Eyes: PERRL, EOM's intact, conjunctiva non-injected, anicteric ENT: normal inspection external ears, nose, mucous membranes dry Neck: supple, trachea midline Lungs: no respiratory distress, faint scattered wheeze, no rales CV: RRR, no pretibial edema Abd: normal BS, soft, non-tender, no CVA tenderness Ext: no cyanosis, no calf tenderness Neuro: A&O x 3, no focal deficits noted, normal affect Skin: warm, dry Results & Data Laboratory Results Short CBC 12/11/18 Range/Units 16:25 WBC 4.38 L (4.8-10.8) K/uL Hgb 15.4 (12.0-16.0) g/dL Hct 44.2 (37-47) % Plt Count 159 (130-400) K/uL BMP 12/11/18 16:25 Sodium 136 Potassium 3.4 L Chloride 99 Carbon Dioxide 27 BUN 43 H Creatinine 2.28 H Glucose 106 H Calcium 8.4 L Cardiac Enzymes 12/11/18 Range/Units 16:25 Troponin I 0.023 (0-0.045) ng/ml Liver Function 12/11/18 Range/Units 16:25 Total Bilirubin 0.3 (0.2-1) mg/dl AST 85 H (15-37) U/L ALT 40 (12-78) U/L Alkaline Phosphatase 71 (45-117) U/L Albumin 3.3 L (3.4-5.0) gm/dl Diagnostic Findings CXR: IMPRESSION: No acute cardiopulmonary findings. ECG Rate (beats per minute): 70 Rhythm: sinus with SA Supervising Physician Co-Signing Physician Notes HISTORY: Record reviewed. Patient interviewed and examined. Care coordinated with Jaelyn Bee PA-C. Please refer to her documentation for patient's history. Briefly, 82 YO female with history of cerebrovascular disease, hypertension, and other problems. Presented to ED with cough, nausea, vomiting, diarrhea. Great-grandchildren ill with similar symptoms. EXAM: General- no distress Lungs- few rhonchi, mild whezing; no respiratory distress Cardiovascular- RRR; no murmur; no gallop; no JVD; no pretibial edema Abdomen- + bowel sounds, soft, nontender Extremities- no cyanosis; no calf tenderness Neuro- alert, oriented Skin- warm & dry DATA: Creatinine 2.28. HOME APPRAISER swab for influenza A positive. Other lab studies as noted. Chest x-ray negative. EKG performed at 1655 reviewed and demonstrated NSR at 70 / minute, no acute changes. ASSESSMENT AND PLAN: Influenza A. Rx with oseltamivir. FELIZ Probably secondary to dehydration. Please refer to ANAM Olsen's documentation for discussion of other issues. _ (1) Acute renal failure Acute renal failure type: unspecified Qualified Code(s): N17.9 - Acute kidney failure, unspecified
[2018-12-11] MEDS: SODIUM CHLORIDE 0.9% 1000ML 1,000 ML IV SCH (21:50)
[2018-12-12 01:40] LABS: Appearance Urine Cloudy (Clear); Bacteria Urine Automated 1+ (Negative); Bilirubin Urine Negative (Negative); Color Urine Yellow; Epithelial Cell Urine Auto >30 /lpf (0-5); Glucose Urine UA Negative (Negative); Ketones Urine Trace (Negative); Leukocyte Esterase Urine 2+ (Negative); Nitrite Urine Negative (Negative); Protein Urine Trace (Negative); Specific Gravity Urine 1.022 (1.000-1.030); Urobilinogen Urine Negative (Negative); WBC Urine Automated >30 /hpf (0-5)
[2018-12-12 01:56] LABS: Mucus Urine Present (None Prsent)
[2018-12-12] MEDS: HEPARIN SOD 5,000 UNIT/0.5 ML VIAL SQ SCH ×3 (06:18→13:41)
[2018-12-12 06:33] LABS: Basophils # (auto) 0.02 K/uL (0-0.2); Basophils % (auto) 0.6 %; Hematocrit (blood only) 37.2 % (37-47); Hemoglobin 12.5 g/dL (12.0-16.0); Immature Granulocytes # (auto) 0.01 K/uL (0.00-0.02); Immature Granulocytes % (auto) 0.3 %; Lymphocytes # (auto) 1.52 K/uL (1.2-3.4); Lymphocytes % (auto) 48.6 %; Mean Corpuscular Hgb Conc 33.6 g/dL (32-36); Mean Platelet Volume 11.7 fL (7.4-10.4); Monocytes # (auto) 0.48 K/uL (0.11-0.59); Monocytes % (auto) 15.3 %; Neutrophils % (auto) 35.2 %; Platelet Count 115 K/uL (130-400); RDW Coefficient of Variation 13.7 % (11.5-14.5); White Blood Count 3.13 K/uL (4.8-10.8)
[2018-12-12 06:57] LABS: Albumin Level 2.5 gm/dl (3.4-5.0); BUN Creatinine Ratio 30.5 (10-20); Calcium 7.4 mg/dl (8.5-10.1); Creatinine Clr Calc Pharmacy 32.6 ml/min; Est GFR (African American) 59.3; Est GFR (Non-African American) 51.2; Magnesium 2.2 mg/dl (1.8-2.4)
[2018-12-12 07:05] LABS: Albumin Globulin Ratio 0.7 (0.9-2); Bilirubin,Total 0.3 mg/dl (0.2-1); Globulin 3.5 gm/dl (2.5-4.0)
[2018-12-12 07:31] LABS: INR 1.1 (0.9-1.1); Prothrombin Time 11.4 Seconds (9.0-12.0)
[2018-12-12] MEDS: SODIUM CHLORIDE 0.9% 1000ML 1,000 ML IV SCH (08:13)
[2018-12-12] MEDS ORDERED: ASPIRIN 325 MG ECTAB PO SCH (09:00)
[2018-12-12] MEDS ORDERED: OSELTAMIVIR PHOSPHATE SUSP 30 MG/5 ML UDP PO SCH (09:00)
--- NOTE | 2018-12-12 14:56 | Hospitalist Progress Note ---
Date of Service December 12, 2018 Assessment & Plan (1) Influenza A: Patient presented with URI symptoms, increased weakness. Influenza A CXR: No acute cardiopulmonary findings. Continue Tamiflu Day#2 Duonebs PRN Monitor Oxygen levels PT/OT prior to discharge (2) Acute renal failure: Likely pre renal Cr: 2.2 >>>1.02 Hold Lisinopril On IV Fluids monitor renal function avoid nephrotoxic agents as able (3) Hypokalemia: Monitor and replace electrolytes as needed (4) Diarrhea: Denies abdominal pain, +household contacts with N/V/D recently. Also denie s recent antibiotic use, recent travel Diarrhea improving Continue IV Fluids Advance diet as tolerated (5) Hypertension: Stable monitor Resume lisinopril as able (6) Stroke: Hx CVA continue ASA, statin (7) HLD (hyperlipidemia): continue statin DVT Px Heparin SQ Code Status DNR/DNI Follows with Dr Maria for routine care Subjective Patient is seen and examined at bedside States feeling better today Cough is improving Denies chest pain, SOB, dizziness Eager to get discharged Offers no other complaints Physical Exam Vital Signs (Past 24 Hours): Last Vital Signs Temp 37 C 12/12/18 07:32 Pulse 69 12/12/18 07:32 Resp 20 12/12/18 07:32 BP 135/75 12/12/18 07:32 Pulse Ox 89 L 12/12/18 07:32 Physical Exam: Physical Exam: Vitals signs as noted above General Appearance:Moderately built and nourished, no apparent distress Head: normocephalic, Atraumatic Eyes: normal inspection, EOMI Neck: supple, Trachea midline Respiratory/Chest: decreased breath sounds, CTA Cardiovascular: S1, S2, No murmur Abdomen/GI:Soft, Non tender, Bowel sounds present Extremities/Musculoskelatal:normal inspection, no edema Neurologic/Psych:AAOX3, grossly no focal neurological deficits Skin: normal color, warm Results & Data Laboratory Results Short CBC 12/11/18 12/12/18 Range/Units 16:25 05:54 WBC 4.38 L 3.13 L (4.8-10.8) K/uL Hgb 15.4 12.5 (12.0-16.0) g/dL Hct 44.2 37.2 (37-47) % Plt Count 159 115 L (130-400) K/uL BMP 12/11/18 12/12/18 16:25 05:54 Sodium 136 138 Potassium 3.4 L 4.0 D Chloride 99 106 Carbon Dioxide 27 27 BUN 43 H 31 H Creatinine 2.28 H 1.02 Glucose 106 H 85 Calcium 8.4 L 7.4 L Cardiac Enzymes 12/11/18 Range/Units 16:25 Troponin I 0.023 (0-0.045) ng/ml Liver Function 12/11/18 12/12/18 Range/Units 16:25 05:54 Total Bilirubin 0.3 0.3 (0.2-1) mg/dl AST 85 H 61 H (15-37) U/L ALT 40 28 (12-78) U/L Alkaline Phosphatase 71 53 (45-117) U/L Albumin 3.3 L 2.5 L (3.4-5.0) gm/dl Urine 12/12/18 Range/Units 01:20 Urine Color Yellow Urine Appearance Cloudy H (Clear) Urine pH 5.0 (4.5-7.5) Ur Specific Lexa 1.022 (1.000-1.030) Urine Protein Trace H (Negative) Urine Glucose (UA) Negative (Negative) Diagnostic Findings CXR: No acute cardiopulmonary findings. (1) Acute renal failure Acute renal failure type: unspecified Qualified Code(s): N17.9 - Acute kidney failure, unspecified
--- NOTE | 2018-12-12 15:59 | Discharge Summary ---
Date of Service December 12, 2018 Admission HPI Per Admitting Provider PT is 82 y/o F with PMH CVA, HTN, dyslipidemia presented to ER with c/o illness. Pt states 4 days ago started with N/V/D. Had 3-4 episodes of diarrhea daily which slowed down yesterday and one very small diarrhea this am. Had couple episodes of vomiting 3 days ago, none since. Has had decreased oral intake. Denies abdominal pain. She states 2 weeks ago with nasal congestion, cough and felt like cough improved several days ago however yesterday started with increased cough again. Today feeling generalized weakness and this morning felt lightheaded. Denies CP, SOB. Reports grandchildren had N/V/D also. Other family members with URI symptoms. Denies influenza vaccine this season. Denies fever/chills, diaphoresis, ANAYA, syncope, vision changes, neck pain, orthopnea, palpitations, hemoptysis, sore throat, choking, paresthesias, extremity edema, rashes, urinary symptoms. In ER was afebrile, P: 69, R: 17, BP: 100/60, 93% on RA. WBC: 5. K: 3.4, BUN: 43, Cr: 2.2 (baseline 0.9), magnesium: 2.4, +Influenza A. CXR: no acute changes. Was given albuterol neb, guaifenesin, tamiflu, 500ml NSS. Admission Exam Per Admitting Provider General: no acute distress, obese Head: normocephalic, atraumatic Eyes: PERRL, EOM's intact, conjunctiva non-injected, anicteric ENT: normal inspection external ears, nose, mucous membranes dry Neck: supple, trachea midline Lungs: no respiratory distress, faint scattered wheeze, no rales CV: RRR, no pretibial edema Abd: normal BS, soft, non-tender, no CVA tenderness Ext: no cyanosis, no calf tenderness Neuro: A&O x 3, no focal deficits noted, normal affect Skin: warm, dry Principal Diagnosis Discharge Information Discharge Diagnosis Influenza A FELIZ Hypokalemia Discharge Goals Decrease discomfort,Increase independence,Improve nutritional status Discharge Activity Limitations Resume your previous activity Discharge Data Allergies Allergy/AdvReac Type Severity Reaction Status Date / Time bee venom protein (honey bee) Allergy Mild RASH/WELTS Unverified 12/11/18 17:09 Penicillins Allergy Mild OTHER Verified 12/11/18 17:09 Consultations 12/11/18 17:11 ED Decision to Admit Stat Procedures Performed CXR: No acute cardiopulmonary findings. Hospital Course (1) Influenza A: Patient presented with URI symptoms, increased weakness. Influenza A CXR: No acute cardiopulmonary findings. Continue Tamiflu Day#2 Duonebs PRN Monitor Oxygen levels PT/OT prior to discharge (2) Acute renal failure: Likely pre renal Cr: 2.2 >>>1.02 Hold Lisinopril On IV Fluids monitor renal function avoid nephrotoxic agents as able (3) Hypokalemia: Monitor and replace electrolytes as needed (4) Diarrhea: Denies abdominal pain, +household contacts with N/V/D recently. Also denies recent antibiotic use, recent travel Diarrhea improving Continue IV Fluids Advance diet as tolerated (5) Hypertension: Stable monitor Resume lisinopril as able (6) Stroke: Hx CVA continue ASA, statin (7) HLD (hyperlipidemia): continue statin Abnormal UA: R/O UTI Patient denies Urinary symptoms Urine Culture:pending Patient/Family prefers to follow up with PCP-- informed PCP as well DVT Px Heparin SQ Code Status DNR/DNI Follows with Dr Maria for routine care Total Time Total Time Spent Total Time Spent (In Minutes): 37 minutes Discharge Plan Discharge Items Patient Disposition: Home - Self-Care Reason For Visit: FLU A,FELIZ Discharge Diagnosis: Influenza A FELIZ Hypokalemia Discharge Goals: Decrease discomfort, Increase independence and Improve nutritional status Activity: Resume your previous activity Exercise/Sports: Gradually increase as tolerated Non-emergency contact: Primary Care Provider Call non-emergency contact if: you have any medication questions, your symptoms worsen, your pain is not controlled, your pain is worsening, your pain is unusual for you, your pain is concerning for you, you have a fever and your temp erature is above 100.5 Diet: Heart Healthy Addtl Provider Instructions: Follow up with your PCP on December 18, 2018 at 12:45pm Complete the Tamiflu course as prescribed Follow up with your Physician regarding Urine Culture results as advised. You may need antibiotics if your urine culture is positive for infection. Seek immediate medical attention if your symptoms reoccur or worsen Prescriptions: New oseltamivir [Tamiflu] 30 mg capsule 30 mg PO DAILY 3 Days Qty: 3 RF: 0 Continued aspirin 325 mg Tablet 325 mg PO DAILY RF: 0 simvastatin [Zocor] 20 mg Tablet 20 mg PO HS RF: 0 docusate sodium 100 mg Capsule 100 mg PO DAILY RF: 0 lisinopril 5 mg Tablet 5 mg PO DAILY RF: 0 Stand-Alone Forms: [facility] Discharge Orders: Discharge Order (Routine); Ordered 12/12/18 Ordered By: Quoc Alexander Admission Data Admit Date/Time: 12/11/18 19:35 Attending Provider: Quoc Alexander Admit Provider: Saroj Potter Primary Care Provider: Janet Maria Other Providers: Saroj Potter ; Rika Gutierrez Service: Medical Other Interventions: Discharge Summary Assessment (RN) Last Done: 12/12/18 16:02 Pending Studies at Discharge: Yes Studies:: Urine Culture DC Date/Time DO NOT enter until pt leaves facility: 12/12/18 16:20
== END 2018-12-12 16:20 | disposition home or self-care (01) | DRG 194 ==
LOC: ED 14:24 → 2N 19:35 → SUATTDRO 19:35 → 2N 20:12

== ENCOUNTER 2022-12-09 14:01 | Inpatient (IN) ==
--- NOTE | 2022-12-09 14:20 | Emergency Department Note ---
Impression & Plan Hypertensive emergency, Dizziness, Elevated troponin, History of CVA (cerebrovascular accident) ED Provider Note NAME: URSZULA DUVALL AGE: 86 SEX: F : 1935 ARRIVES VIA: Walk-In INFORMANT: Patient, ED PROVIDER(S): Qiuncy Hartmann MD CHIEF COMPLAINT: Dizziness, lightheadedness MEDICAL DECISION MAKING: Patient presented for dizziness and lightheadedness with associated hypertension but did relate that she had some vertigo that was positional in nature. The patient did have an IV established, blood work was obtained. CT head and CT angiography was ordered in addition to EKG the patient was ordered IV Zofran p. o. meclizine as well as the patient's p.o. lisinopril that she states she likely vomited this morning. The patient was still hypertensive and was ordered some IV hydralazine. The patient's CT of the head and CT angiography's were performed after blood work was completed. The patient has a normal white count H&H and platelet count with normal kidney function and electrolytes. BSG 108 slightly elevated but nonfasting and not DKA. Patient was noted to have an elevated troponin of greater than 200. The patient denies any acute chest pains or shortness of breath. The patient's CT head and CT angiography did not show any acute concerning findings. There was some mild stenosis noted on her CT angiography of the neck. Upon further discussion with the patient the patient's family member at bedside they are comfortable with admission at this time but given the patient's symptoms may be considered hypertensive emergency given the patient's nausea vomiting dizziness and I did speak the on-call hospitalist service and the patient was admitted by Dr. Alvarado. Critical Care: I have personally spent 39 minutes of critical care time in direct management of this patient. This includes bedside care, interpretation of diagnostic studies, and testing, discussion with consultants, patient, and family members, and other require inpatient management activities. This 39 minutes is in excess of all separately billable procedures. Prior /Outside records reviewed: I did review the patient's most recent discharge summary from November 2018. The patient has a known history of CVA hypertension hyperlipidemia. Patient was admitted that time for flu acute renal failure. The patient is on lisinopril. Differential diagnosis: Benign positional vertigo, dehydration, hypovolemia, anemia, tumor, infection, hypoglycemia, electrolyte abnormalities, cardiac sources, intracerebral event, toxicologic, neurologic, as well as other pathologies. Diagnostics, as interpreted by me: ECG: NSR, rate of 64, normal intervals, normal axis, no ST elevations. Cardiac monitoring: An order was placed for continuous cardiac monitoring. The monitor shows a rate of 72 with sinus rhythm. Patient was placed on pulse oximetry Medical decision rules: None Imaging studies: See below HPI: Patient presents due to concern for dizziness and lightheadedness which have been ongoing this week but seem to be reported the worst today. The patient did have an episode of nausea with associated vomiting does relate that when she moves her head a certain way she can notice that the room seems to be spinning. This is not happened before. Patient does take lisinopril 5 mg and this has been unchanged for some time. The patient denies any alcohol tobacco or drug use. The patient does live in an adjoining apartment with the patient's family member who is also present at the bedside. Patient denies any chest pains or shortness of breath. The patient denies any current vertigo. No alcohol or tobacco use. Patient denies any numbness tingling or focal weakness. The patient does have a prior history of CVA and does have some residual left- sided weakness but this has been unchanged for some time. The patient denies any recent change and has no slurred speech or facial droop PAST MEDICAL HISTORY: See Below PAST SURGICAL HISTORY: See Below SOCIAL HISTORY: See Below HOME MEDICATIONS: See Below ALLERGIES: See Below VITALS: See Below PHYSICAL EXAMINATION: GENERAL: NAD, wearing a mask, non-toxic. EYE EXAM: Normal conjunctiva. PERRL, no anisocoria and EOM's grossly intact w/o pain. Oropharynx: Edentulous. NECK: Supple, no nuchal rigidity, no adenopathy, non-tender. No signs of meningismus. FROM of the neck with good chin to chest and neck extension. No stridor. LUNGS: Clear to auscultation. Normal chest wall mechanics. HEART: NSR, no MRG. ABDOMEN: Abdomen soft, non-tender, normo-active bowel sounds, no masses, no rebound or guarding. BACK: No CVA TTP. SKIN: No rashes and no bruising. UPPER EXTREMITIES: Upper extremities are grossly normal. LOWER EXTREMITIES: Grossly normal, no edema. NEURO EXAM: A&O x3, cranial nerves II-XII grossly intact, normal speech, moves a ll 4 extremities. Good [id number], no drift and no sensory deficits. Past Med/Surg History Medical History History of CVA (cerebrovascular accident) HLD (hyperlipidemia) Hypertension Stroke Surgical History History of cholecystectomy Hx of tonsillectomy Family History Other Lymphoma Social History Smoking Status: Never smoker Hx Alcohol Use: Yes Alcohol type: beer Hx Substance Use: No Preferred Language: Iranian Communication Ability: Effective Deck Lid Fitter Required: No Beliefs That Will Affect Care: None Current Living Situation: Alone Current Living Situation Comment: Patient lives alone in apartment on granddaughter's property Other Information That Helps Us Care for You: No Feels Safe at Home: Yes Safety Concerns: Feels Safe At This Time Assistive Devices: Denture - Upper and Glasses Assistive Devices Comment: patient stated she lost upper denture, has a walker at home, reading glasse Allergies Allergies Allergy/AdvReac Type Severity Reaction Status Date / Time bee venom protein (honey bee) Allergy Mild RASH/WELTS Unverified 12/09/22 15:30 Penicillins Allergy Mild OTHER Verified 12/09/22 15:30 Home Meds Home Medications Medication Instructions Recorded Confirmed aspirin 325 mg tablet 325 mg PO DAILY 12/11/18 12/09/22 docusate sodium 100 mg capsule 100 mg PO DAILY 12/11/18 12/09/22 lisinopril 5 mg tablet 5 mg PO DAILY 12/11/18 12/09/22 simvastatin 20 mg tablet (Zocor) 20 mg PO HS 12/11/18 12/09/22 Results & Data (ED) Vital Signs Vital Signs - 24 hr 12/09/22 14:04 12/09/22 15:00 12/09/22 17:54 Temperature 36.5 C Temperature Source Oral Pulse Rate 68 67 Pulse Rate [Right Finger] 76 Pulse Rhythm Pulse Rhythm [Right Finger] Regular Pulse Strength [Right Finger] Normal Respiratory Rate 18 20 20 Respiratory Effort / Characteristics Non-Labored Spontaneous Non-Labored Spontaneous Respiratory Depth Normal Normal Respiratory Pattern Regular Regular Blood Pressure 237/83 H Blood Pressure [Right Arm] 191/61 H Blood Pressure Mean 134 Blood Pressure Mean [Right Arm] 104 Blood Pressure Position Sitting Blood Pressure Position [Right Arm] Pulse Oximetry 96 97 98 Oxygen Delivery Method Room Air Room Air Room Air Sepsis Recent Fever Within 48 Hours No Sepsis New/Unexplained Change in Mental Status No Sepsis Action Taken by Nursing No Action Required 12/09/22 16:26 12/09/22 15:15 12/09/22 16:15 Temperature Temperature Source Pulse Rate 61 67 Pulse Rate [Right Finger] 60 Pulse Rhythm Regular Pulse Rhythm [Right Finger] Regular Pulse Strength [Right Finger] Normal Respiratory Rate 22 22 Respiratory Effort / Characteristics Non-Labored Spontaneous Respiratory Depth Normal Respiratory Pattern Regular Blood Pressure Blood Pressure [Right Arm] 251/83 H Blood Pressure Mean Blood Pressure Mean [Right Arm] 139 Blood Pressure Position Blood Pressure Position [Right Arm] Sitting Pulse Oximetry 96 97 Oxygen Delivery Method Room Air Room Air Sepsis Recent Fever Within 48 Hours Sepsis New/Unexplained Change in Mental Status Sepsis Action Taken by Nursing 12/09/22 16:15 12/09/22 16:30 12/09/22 17:30 Temperature Temperature Source Pulse Rate Pulse Rate [Right Finger] 67 59 L 72 Pulse Rhythm Pulse Rhythm [Right Finger] Regular Regular Regular Pulse Strength [Right Finger] Normal Normal Normal Respiratory Rate 22 13 17 Respiratory Effort / Characteristics Non-Labored Spontaneous Non-Labored Spontaneous Non-Labored Spontaneous Respiratory Depth Normal Normal Normal Respiratory Pattern Regular Regular Regular Blood Pressure Blood Pressure [Right Arm] 249/96 H 215/130 H 175/85 H Blood Pressure Mean Blood Pressure Mean [Right Arm] 147 158 115 Blood Pressure Position Blood Pressure Position [Right Arm] Sitting Sitting Sitting Pulse Oximetry 97 96 93 Oxygen Delivery Method Room Air Room Air Room Air Sepsis Recent Fever Within 48 Hours Sepsis New/Unexplained Change in Mental Status Sepsis Action Taken by Nursing 12/09/22 19:07 Temperature Temperature Source Pulse Rate Pulse Rate [Right Finger] 70 Pulse Rhythm Pulse Rhythm [Right Finger] Regular Pulse Strength [Right Finger] Normal Respiratory Rate 16 Respiratory Effort / Characteristics Non-Labored Spontaneous Respiratory Depth Normal Respiratory Pattern Regular Blood Pressure Blood Pressure [Right Arm] 183/63 H Blood Pressure Mean Blood Pressure Mean [Right Arm] 103 Blood Pressure Position Blood Pressure Position [Right Arm] Lying Pulse Oximetry 96 Oxygen Delivery Method Room Air Sepsis Recent Fever Within 48 Hours Sepsis New/Unexplained Change in Mental Status Sepsis Action Taken by [facility] Medications Current Medication List: was personally reviewed by me Laboratory Data Attestation: I reviewed the patient's lab results. 12/10/22 07:22 12/10/22 07:22 Lab Results 12/09/22 12/09/22 12/09/22 Range/Units 15:08 16:13 16:15 WBC 6.37 (4.8-10.8) K/ul RBC 4.95 (4.20-5.40) M/uL Hgb 16.2 H (12.0-16.0) g/dl Hct 46.5 (37.0-47.0) % MCV 93.9 (80.0-100.0) fL MCH 32.7 (25.0-34.0) pg MCHC 34.8 (32.0-36.0) g/dL RDW Std Deviation 43.1 (36.4-46.3) fL RDW Coeff of Martha 12.4 (11.5-14.5) % Plt Count 160 (130-400) K/uL MPV 11.9 (9.4-12.4) fL Immature Gran % (Auto) 0.3 % Neut % (Auto) 69.4 % Lymph % (Auto) 24.6 % [place] % (Auto) 5.0 % Eos % (Auto) 0.2 % Baso % (Auto) 0.5 % Neut # (Auto) 4.42 (1.40-6.50) K/uL Lymph # (Auto) 1.57 (1.2-3.4) K/uL [place] # (Auto) 0.32 (0.11-0.59) K/uL Eos # (Auto) 0.01 (0-0.50) K/uL Baso # (Auto) 0.03 (0-0.2) K/uL Immature Gran # (Auto) 0.02 (0.01-0.20) K/uL PT (9.0-12.0) Seconds INR (0.9-1.1) Sodium (136-145) mmol/L Potassium (3.5-5.1) mmol/L Chloride (98-107) mmol/L Carbon Dioxide (21-32) mmol/L Anion Gap (3-11) BUN (6-23) mg/dl Creatinine (0.6-1.2) mg/dl Est Cr Clr Drug Dosing ml/min Est GFR ( Amer) ml/min Est GFR (Non-Af Amer) ml/min BUN/Creatinine Ratio (10-20) Glucose (70-99(Fasting)) mg/dl Calcium (8.5-10.1) mg/dl Magnesium (1.7-2.4) mg/dl Total Bilirubin (0.2-1.0) mg/dl AST (13-39) U/L ALT (7-52) U/L Alkaline Phosphatase (34-104) U/L Troponin I High Sens (0-14) pg/ml Total Protein (6.0-8.3) gm/dl Albumin (3.4-5.0) gm/dl Globulin (2.5-4.0) gm/dl Albumin/Globulin Ratio (0.9-2) TSH (0.300-4.500) uIu/ml Urine Color Yellow Urine Appearance Cloudy A (Clear) Urine pH 6.5 (4.5-7.5) Ur Specific [place] 1.008 (1.000-1.030) Urine Protein Negative (Negative) Urine Glucose (UA) Negative (Negative) Urine Ketones Trace H (Negative) Urine Blood 2+ H (Negative) Urine Nitrite Negative (Negative) Urine Bilirubin Negative (Negative) Urine Urobilinogen Negative (Negative) Ur Leukocyte Esterase 1+ H (Negative) Urine WBC (Auto) 10-30 H (0-5) /hpf Urine RBC (Auto) 0-4 (0-4) /hpf U Hyaline Cast (Auto) 0 (0-5) /lpf U Epithel Cells (Auto) 5-10 H (0-5) /lpf Urine Bacteria (Auto) 2+ H (Negative) SARS-CoV-2, RNA, NAAT NEGATIVE (NEGATIVE) 12/09/22 12/09/22 12/09/22 Range/Units 16:15 16:15 16:15 WBC (4.8-10.8) K/ul RBC (4.20-5.40) M/uL Hgb (12.0-16.0) g/dl Hct (37.0-47.0) % MCV (80.0-100.0) fL MCH (25.0-34.0) pg MCHC (32.0-36.0) g/dL RDW Std Deviation (36.4-46.3) fL RDW Coeff of Martha (11.5-14.5) % Plt Count (130-400) K/uL MPV (9.4-12.4) fL Immature Gran % (Auto) % Neut % (Auto) % Lymph % (Auto) % [place] % (Auto) % Eos % (Auto) % Baso % (Auto) % Neut # (Auto) (1.40-6.50) K/uL Lymph # (Auto) (1.2-3.4) K/uL [place] # (Auto) (0.11-0.59) K/uL Eos # (Auto) (0-0.50) K/uL Baso # (Auto) (0-0.2) K/uL Immature Gran # (Auto) (0.01-0.20) K/uL PT 11.3 (9.0-12.0) Seconds INR 1.1 (0.9-1.1) Sodium 138 (136-145) mmol/L Potassium 4.1 (3.5-5.1) mmol/L Chloride 103 (98-107) mmol/L Carbon Dioxide 30 (21-32) mmol/L Anion Gap 5 (3-11) BUN 8 (6-23) mg/dl Creatinine 0.72 (0.6-1.2) mg/dl Est Cr Clr Drug Dosing 42.4 ml/min Est GFR ( Amer) 87.9 ml/min Est GFR (Non-Af Amer) 75.8 ml/min BUN/Creatinine Ratio 11.1 (10-20) Glucose 108 H (70-99(Fasting)) mg/dl Calcium 9.4 (8.5-10.1) mg/dl Magnesium 2.0 (1.7-2.4) mg/dl Total Bilirubin 0.8 (0.2-1.0) mg/dl AST 22 (13-39) U/L ALT 11 (7-52) U/L Alkaline Phosphatase 81 (34-104) U/L Troponin I High Sens 222.4 H* (0-14) pg/ml Total Protein 7.4 (6.0-8.3) gm/dl Albumin 3.9 (3.4-5.0) gm/dl Globulin 3.5 (2.5-4.0) gm/dl Albumin/Globulin Ratio 1.1 (0.9-2) TSH 0.875 (0.300-4.500) uIu/ml Urine Color Urine Appearance (Clear) Urine pH (4.5-7.5) Ur Specific [place] (1.000-1.030) Urine Protein (Negative) Urine Glucose (UA) (Negative) Urine Ketones (Negative) Urine Blood (Negative) Urine Nitrite (Negative) Urine Bilirubin (Negative) Urine Urobilinogen (Negative) Ur Leukocyte Esterase (Negative) Urine WBC (Auto) (0-5) /hpf Urine RBC (Auto) (0-4) /hpf U Hyaline Cast (Auto) (0-5) /lpf U Epithel Cells (Auto) (0-5) /lpf Urine Bacteria (Auto) (Negative) SARS-CoV-2, RNA, NAAT (NEGATIVE) Administered Medications Amlodipine Besylate (Amlodipine Besylate 5 Mg Tab) 5 mg PO HS ALBERTO Stop: 01/08/23 20:59 Last Admin: 12/09/22 21:28 Dose: 5 mg Documented By: DANNY Aspirin (Aspirin 325 Mg Ectab) 325 mg PO DAILY ALBERTO Stop: 01/09/23 08:59 Last Admin: 12/10/22 08:07 Dose: 325 mg Documented By: SEVEN Docusate Sodium (Docusate Sodium 100 Mg Cap) 100 mg PO DAILY ALBERTO Stop: 01/09/23 08:59 Last Admin: 12/10/22 08:07 Dose: 100 mg Documented By: SEVEN Ceftriaxone Sodium 1,000 mg/ (Dextrose) 50 mls @ 100 mls/hr IV Q24H [facility]; Protocol Stop: 12/15/22 08:59 Last Infusion: 12/10/22 10:51 Dose: 0 mls/hr Documented By: Admin: 12/10/22 09:53 Dose: 100 mls/hr Documented By: SEVEN Lisinopril (Lisinopril 10 Mg Tab) 10 mg PO HS ALBERTO Stop: 01/08/23 20:59 Last Admin: 12/09/22 21:29 Dose: 10 mg Documented By: DANNY Simvastatin (Simvastatin 20 Mg Tab) 20 mg PO HS ALBERTO Stop: 01/08/23 20:59 Last Admin: 12/09/22 21:28 Dose: 20 mg Documented By: DANNY Discontinued Medications Amlodipine Besylate (Amlodipine Besylate 5 Mg Tab) 5 mg PO NOW ONE Stop: 12/09/22 19:25 Last Admin: 12/09/22 19:48 Dose: 5 mg Documented By: ITZEL Hydralazine HCl (Hydralazine Hcl 20 Mg/Ml Vial) 5 mg IV NOW STA Stop: 12/09/22 16:35 Last Admin: 12/09/22 16:43 Dose: 5 mg Documented By: FILEMON Ioversol (Optiray 320 500ml) 113 ml IV ONCE ONE Stop: 12/09/22 17:47 Last Admin: 12/09/22 17:47 Dose: 113 ml Documented By: ABISAI Lisinopril (Lisinopril 5 Mg Tab) 5 mg PO NOW ONE Stop: 12/09/22 14:44 Last Admin: 12/09/22 15:03 Dose: 5 mg Documented By: DAVID Meclizine HCl (Meclizine Hcl 25 Mg Tab) 25 mg PO NOW STA Stop: 12/09/22 14:44 Last Admin: 12/09/22 15:04 Dose: 25 mg Documented By: DAVID Ondansetron HCl (Ondansetron Inj 2 Mg/Ml 2 Ml Vial) 4 mg IV NOW STA Stop: 12/09/22 14:44 Last Admin: 12/09/22 16:20 Dose: 4 mg Documented By: ITZEL Imaging Data Radiologist's Impression: Head CT 12/09/22 14:43 CT OF THE HEAD WITHOUT CONTRAST CLINICAL HISTORY: dizziness/vertigo, HTN COMPARISON STUDY: Head CT September 11, 2016. MRI of the brain August 25, 2013. TECHNIQUE: Helical axial images of the head were obtained without IV contrast. Automated exposure control was utilized for the study. A dose lowering technique was utilized adhering to the principles of ALARA. FINDINGS: No acute intracranial hemorrhage, midline shift or mass effect is present. The ventricular system is stable. Old right SCRUM PROJECT MANAGER territory infarct is again noted with encephalomalacia. Suspected old lacunar infarct within the posterior limb of the right internal capsule is unchanged. White matter hypodensity suggests small vessel disease. The basal cisterns are patent. No extra-axial collections are present. There are no findings to suggest acute dural sinus thrombosis or acute territorial infarct. No significant calvarial abnormalities are present. Visualized portions of the sinuses and mastoid air cells are clear. IMPRESSION: No acute intracranial findings. No change in appearance of the brain. ACT 112: Negative or not required by law. Electronically signed by: Tereso Colby M.D. 12/09/2022 5:56 PM Head CTA 12/09/22 14:44 HEAD CTA HISTORY: vertigo/dizziness/HTN TECHNIQUE: Multiaxial CT images of the head were performed following the intravenous administration of contrast to evaluate the major cerebral vessels. Maximum intensity projection images were also obtained. A dose lowering technique was utilized adhering to the principles of ALARA. COMPARISON: Noncontrast head CT 12/09/2022 FINDINGS: There is an old right occipital lobe infarct. Visualized intracranial internal carotid arteries, distal vertebral arteries, and basilar artery are widely patent. There is no significant stenosis, occlusion, or aneurysm seen within the bilateral ACAs, MCAs, or left SCRUM PROJECT MANAGER. Mildly attenuated right SCRUM PROJECT MANAGER likely corresponds to the old right SCRUM PROJECT MANAGER territory infarct. Moderate calcified plaque within the bilateral carotid siphons. The major dural venous sinuses are patent. IMPRESSION: No significant stenosis, occlusion, or aneurysm within the [place]. ACT 112: Negative or not required by law. Electronically signed by: Everton Calles M.D. 12/09/2022 5:56 PM Neck CTA 12/09/22 14:44 CT ANGIOGRAPHY OF THE NECK WITH CONTRAST CLINICAL HISTORY: vertigo/dizziness/HTN COMPARISON STUDY: Carotid ultrasound August 24, 2013. MRI of the neck August 25, 2013. Technique: CT angiography of the carotid and vertebral arteries was obtained using Optiray and 3D reconstruction on an independent workstation. NASCET criteria was utilized. Automated exposure control was utilized for the study. A dose lowering technique was utilized adhering to the principles of ALARA. Findings: Moderate plaque of the aortic arch is noted. There is calcified plaque within the proximal left subclavian artery which results in approximate 40% stenosis. The left vertebral artery is patent. There is mild stenosis at the origin of the right vertebral artery. There is no dissection within the major vessels of the neck. The bilateral common carotid arteries are patent. There is moderate plaque within the proximal left internal carotid artery without significant stenosis. There is mild plaque within the proximal right internal carotid artery without stenosis. IMPRESSION: 1. No stenosis within the bilateral common carotid or cervical internal carotid arteries. Plaque within the proximal bilateral internal carotid arteries, as above. 2. 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 Mild stenosis at the origin of the right vertebral artery. 3. No dissection or aneurysm within the neck. ACT 112: Negative or not required by law. Electronically signed by: Tereso Colby M.D. 12/09/2022 6:03 PM Discharge Plan Visit Data Chief Complaint: Illness Stated Complaint: VERTIGO, WEAKNESS ED Provider: Quincy Hartmann Discharge Problem: Hypertensive emergency, Dizziness, Elevated troponin, History of CVA (cerebrovascular accident) Patient Disposition: Admitted As Inpatient Discharge Instructions Interventions: ED Discharge Assessment Last Done: 12/09/22 20:04
[2022-12-09] MEDS ORDERED: MECLIZINE HCL 25 MG TAB PO STA (14:43)
[2022-12-09] MEDS ORDERED: lisinopril 5 MG TAB PO ONE (14:43)
[2022-12-09] MEDS ORDERED: ONDANSETRON INJ 2 MG/ML 2 ML VIAL IV STA (14:43)
--- NOTE | 2022-12-09 16:24 | Electrocardiogram Report ---
Test Reason : Blood Pressure : / mmHG Vent. Rate : 064 BPM Atrial Rate : 064 BPM P-R Int : 164 ms QRS Dur : 084 ms QT Int : 440 ms P-R-T Axes : 037 014 021 degrees QTc Int : 453 ms Normal sinus rhythm Normal ECG When compared with ECG of 11-DEC-2018 16:55, No significant change was found Confirmed by Luis Enrique Reddy ([id number]) on 12/09/2022 4:24:16 PM Referred By: REFERRED SELF Confirmed By:Suresh Reddy
[2022-12-09] MEDS ORDERED: hydrALAZINE HCL 20 MG/ML VIAL IV STA (16:34)
[2022-12-09 16:54] LABS: Basophils # (auto) 0.03 K/uL (0-0.2); Basophils % (auto) 0.5 %; Eosinophils # (auto) 0.01 K/uL (0-0.50); Eosinophils % (auto) 0.2 %; Hematocrit (blood only) 46.5 % (37.0-47.0); Hemoglobin 16.2 g/dl (12.0-16.0); Immature Granulocytes # (auto) 0.02 K/uL (0.01-0.20); Immature Granulocytes % (auto) 0.3 %; Lymphocytes # (auto) 1.57 K/uL (1.2-3.4); Lymphocytes % (auto) 24.6 %; Mean Corpuscular Hemoglobin 32.7 pg (25.0-34.0); Mean Corpuscular Hgb Conc 34.8 g/dL (32.0-36.0); Mean Corpuscular Volume 93.9 fL (80.0-100.0); Mean Platelet Volume 11.9 fL (9.4-12.4); Monocytes # (auto) 0.32 K/uL (0.11-0.59); Neutrophils # (auto) 4.42 K/uL (1.40-6.50); Neutrophils % (auto) 69.4 %; Platelet Count 160 K/uL (130-400); RDW Coefficient of Variation 12.4 % (11.5-14.5); RDW Standard Deviation 43.1 fL (36.4-46.3); Red Blood Count 4.95 M/uL (4.20-5.40); White Blood Count 6.37 K/ul (4.8-10.8)
[2022-12-09 17:04] LABS: Albumin Globulin Ratio 1.1 (0.9-2); Albumin Level 3.9 gm/dl (3.4-5.0); BUN Creatinine Ratio 11.1 (10-20); Bilirubin,Total 0.8 mg/dl (0.2-1.0); Calcium 9.4 mg/dl (8.5-10.1); Creatinine Clr Calc Pharmacy 42.4 ml/min; Est GFR (African American) 87.9 ml/min; Est GFR (Non-African American) 75.8 ml/min; Globulin 3.5 gm/dl (2.5-4.0); Potassium 4.1 mmol/L (3.5-5.1); Total Protein 7.4 gm/dl (6.0-8.3)
[2022-12-09 17:17] LABS: Troponin I High Sensitivity 222.4 pg/ml (0-14)
[2022-12-09 17:19] LABS: INR 1.1 (0.9-1.1); Prothrombin Time 11.3 Seconds (9.0-12.0)
[2022-12-09] MEDS ORDERED: OPTIRAY 320 500ml IV ONE (17:46)
--- NOTE | 2022-12-09 17:58 | CT Scan Report ---
CT OF THE HEAD WITHOUT CONTRAST CLINICAL HISTORY: dizziness/vertigo, HTN COMPARISON STUDY: Head CT September 11, 2016. MRI of the brain August 25, 2013. TECHNIQUE: Helical axial images of the head were obtained without IV contrast. Automated exposure con trol was utilized for the study. A dose lowering technique was utilized adhering to the principles o f ALARA. FINDINGS: No acute intracranial hemorrhage, midline shift or mass effect is present. The ventricular system is stable. Old right ART PROFESSOR territory infarct is again noted with encephalomalacia. Suspected old lacunar infarct within the posterior limb of the right internal capsule is unchanged. White matter h ypodensity suggests small vessel disease. The basal cisterns are patent. No extra-axial collections a re present. There are no findings to suggest acute dural sinus thrombosis or acute territorial infarc t. No significant calvarial abnormalities are present. Visualized portions of the sinuses and mastoid air cells are clear. IMPRESSION: No acute intracranial findings. No change in appearance of the brain. ACT 112: Negative or not required by law. Electronically signed by: Tereso Colby M.D. 12/09/2022 5:56 PM
--- NOTE | 2022-12-09 17:58 | CT Scan Report ---
HEAD CTA HISTORY: vertigo/dizziness/HTN TECHNIQUE: Multiaxial CT images of the head were performed following the intravenous administration o f contrast to evaluate the major cerebral vessels. Maximum intensity projection images were also obta ined. A dose lowering technique was utilized adhering to the principles of ALARA. COMPARISON: Noncontrast head CT 12/09/2022 FINDINGS: There is an old right occipital lobe infarct. Visualized intracranial internal carotid tomás zach, distal vertebral arteries, and basilar artery are widely patent. There is no significant stenos is, occlusion, or aneurysm seen within the bilateral ACAs, MCAs, or left MMA FIGHTER. Mildly attenuated right MMA FIGHTER likely corresponds to the old right MMA FIGHTER territory infarct. Moderate calcified plaque within the bilateral carotid siphons. The major dural venous sinuses are patent. IMPRESSION: No significant stenosis, occlusion, or aneurysm within the [place]. ACT 112: Negative or not required by law. Electronically signed by: Everton Calles M.D. 12/09/2022 5:56 PM
[2022-12-09 18:06] LABS: Appearance Urine Cloudy (Clear); Bacteria Urine Automated 2+ (Negative); Bilirubin Urine Negative (Negative); Blood Urine 2+ (Negative); Cast Urine Automated 0 /lpf (0-5); Color Urine Yellow; Glucose Urine UA Negative (Negative); Ketones Urine Trace (Negative); Leukocyte Esterase Urine 1+ (Negative); Nitrite Urine Negative (Negative); Protein Urine Negative (Negative); RBC Urine Automated 0-4 /hpf (0-4); Specific Gravity Urine 1.008 (1.000-1.030); Urobilinogen Urine Negative (Negative); pH Urine 6.5 (4.5-7.5)
--- NOTE | 2022-12-09 18:06 | CT Scan Report ---
CT ANGIOGRAPHY OF THE NECK WITH CONTRAST CLINICAL HISTORY: vertigo/dizziness/HTN COMPARISON STUDY: Carotid ultrasound August 24, 2013. MRI of the neck August 25, 2013. Technique: CT angiography of the carotid and vertebral arteries was obtained using Optiray and 3D rec onstruction on an independent workstation. NASCET criteria was utilized. Automated exposure control was utilized for the study. A dose lowering technique was utilized adhering to the principles of ALA RA. Findings: Moderate plaque of the aortic arch is noted. There is calcified plaque within the proximal left subclavian artery which results in approximate 40% stenosis. The left vertebral artery is patent . There is mild stenosis at the origin of the right vertebral artery. There is no dissection within t he major vessels of the neck. The bilateral common carotid arteries are patent. There is moderate debbie que within the proximal left internal carotid artery without significant stenosis. There is mild plaq ue within the proximal right internal carotid artery without stenosis. IMPRESSION: 1. No stenosis within the bilateral common carotid or cervical internal carotid arteries. Plaque with in the proximal bilateral internal carotid arteries, as above. 2. 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 Mild stenosis at the origin of th e right vertebral artery. 3. No dissection or aneurysm within the neck. ACT 112: Negative or not required by law. Electronically signed by: Tereso Colby M.D. 12/09/2022 6:03 PM
--- NOTE | 2022-12-09 19:08 | History & Physical Report ---
Date of Service December 09, 2022 Assessment & Plan (1) Hypertensive emergency: (2) Dizziness: Plan: Patient is 86 y/o F with PMH CVA with residual left sided weakness, HTN, dyslipidemia presented to ER with c/o dizziness x 1 week. Has not been taking lisinopril regularly. In ER BP 237/83 improved to 183/63 after hydralazine 5 mg IV and lisinopril [address] head: No acute intracranial findings. No change in appearance of the brain. CTA head:No significant stenosis, occlusion, or aneurysm within the tetlin of [place]. CTA neck: No stenosis within the bilateral common carotid or cervical internal carotid arteries. Plaque within the proximal bilateral internal carotid arteries, as above. 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 Mild stenosis at the origin of the right vertebral artery. No dissection or aneurysm within the neck. Dizziness may be secondary to hypertensive emergency vs vertigo In ER was given Zofran and meclizine for dizziness. Patient with noted reproducible dizziness with sitting up. Of note patient has been forgetting to take lisinopril in the mornings as she is quite busy. May need to consider dosing medications at night for better compliance Increase home lisinopril from 5 mg to 10 mg daily Start amlodipine 5 mg daily Hydralazine as needed BP> 180/100 Echo Trend troponin as below PT/OT eval (3) Elevated troponin: Plan: High-sensitivity troponin: 222. EKG reviewed and my interpretation is rate 64, sinus rhythm, no acute ST changes Denies chest pain, shortness of breath R/O ACS Repeat EKG in am Will trend troponin Echo Lipid panel in am, continue simvastatin Continue aspirin Cardiology consult (4) History of CVA (cerebrovascular accident): Plan: CVA with residual left sided weakness Continue aspirin, simvastatin (5) HLD (hyperlipidemia): Plan: Continue simvastatin DVT Prophylaxis SCDs for now DNR/DNI as per discussion with pt Follows with Dr Maria for routine care Pt was seen and care coordinated with Dr Alvarado. See addendum I spent a total of 75 minutes reviewing notes, outpatient records, labs, medication, coordinating, documenting and providing care for this patient excluding time spent in the performance of separately billed services. History of Present Illness Chief Complaint: Dizziness Primary Care Provider: Janet Holencik, DO Patient is 86 y/o F with PMH CVA with residual left sided weakness, HTN, dyslipidemia presented to ER with c/o dizziness x 1 week. History obtained from patient and patient's granddaughter at bedside. Intermittent dizziness this past week. Describes dizziness as spinning sensation that causes her to be off balance and fall. She states has fallen on her buttocks a couple of times. Denies hitting head and denies any known injury. Reports nausea, vomiting with dizziness. Denies any noted increased weakness. Denies speech changes, facial drooping. Has chronic left sided weakness from prior stroke and denies any increased extremity weakness. While in ER had some posterior headache which has since resolved. Has not been taking her lisinopril regularly because she states forgets to take in the morning because she is busy in the mornings. Took medications today, however vomited shortly after taking. Chronic intermittent nonproductive cough. Chronic constipation. Denies fever/chills, diaphoresis, diarrhea, syncope, vision changes, neck pain, CP, SOB, orthopnea, palpitations, cough, sore throat, choking, otalgia, rhinorrhea, abdominal pain, paresthesias, extremity edema, rashes, urinary symptoms. Allergies Allergy/AdvReac Type Severity Reaction Status Date / Time bee venom protein (honey bee) Allergy Mild RASH/WELTS Unverified 12/09/22 15:30 Penicillins Allergy Mild OTHER Verified 12/09/22 15:30 Home Medications Medication Instructions Recorded Confirmed Type aspirin 325 mg tablet 325 mg PO DAILY 12/11/18 12/09/22 History docusate sodium 100 mg capsule 100 mg PO DAILY 12/11/18 12/09/22 History lisinopril 5 mg tablet 5 mg PO DAILY 12/11/18 12/09/22 History simvastatin 20 mg tablet (Zocor) 20 mg PO HS 12/11/18 12/09/22 History Past Med/Surg History Medical History (Updated 12/09/22 @ 19:41 by Jaelyn Olsen PA-C) History of CVA (cerebrovascular accident) HLD (hyperlipidemia) Hypertension Stroke Surgical History History of cholecystectomy Hx of tonsillectomy Family History Other Lymphoma Social History Smoking Status: Never smoker Hx Alcohol Use: Yes Alcohol type: beer Hx Substance Use: No Preferred Language: Frisian Communication Ability: Effective Malt House Loader Required: No Beliefs That Will Affect Care: None Current Living Situation: Alone Current Living Situation Comment: Patient lives alone in apartment on granddaughter's property Other Information That Helps Us Care for You: No Feels Safe at Home: Yes Safety Concerns: Feels Safe At This Time Assistive Devices: Denture - Upper and Glasses Assistive Devices Comment: patient stated she lost upper denture, has a walker at home, reading glasse Review of Systems Review of Systems: All systems reviewed & are unremarkable except as noted in HPI & below Physical Exam Physical Exam: PE per Dr Alvarado Results & Data Results & Data ([facility]) Vital Signs (Past 12 Hours) Vital Signs Temp Pulse Pulse Resp BP BP Pulse Ox 12/09/22 17:30 72 17 175/85 H 93 12/09/22 16:30 59 L 13 215/130 H 96 12/09/22 16:15 67 22 249/96 H 97 12/09/22 16:15 67 22 97 12/09/22 15:15 60 22 251/83 H 96 12/09/22 16:26 61 12/09/22 17:54 76 20 191/61 H 98 12/09/22 15:00 67 20 97 12/09/22 14:04 36.5 C 68 18 237/83 H 96 O2 Del Method 12/09/22 17:30 Room Air 12/09/22 16:30 Room Air 12/09/22 16:15 Room Air 12/09/22 16:15 Room Air 12/09/22 15:15 Room Air 12/09/22 16:26 12/09/22 17:54 Room Air 12/09/22 15:00 Room Air 12/09/22 14:04 Room Air Laboratory Results Short CBC 12/09/22 Range/Units 16:15 WBC 6.37 (4.8-10.8) K/ul Hgb 16.2 H (12.0-16.0) g/dl Hct 46.5 (37.0-47.0) % Plt Count 160 (130-400) K/uL BMP 12/09/22 16:15 Sodium 138 Potassium 4.1 Chloride 103 Carbon Dioxide 30 BUN 8 Creatinine 0.72 Glucose 108 H Calcium 9.4 Liver Function 12/09/22 Range/Units 16:15 Total Bilirubin 0.8 (0.2-1.0) mg/dl AST 22 (13-39) U/L ALT 11 (7-52) U/L Alkaline Phosphatase 81 (34-104) U/L Albumin 3.9 (3.4-5.0) gm/dl Urine 12/09/22 Range/Units 16:13 Urine Color Yellow Urine Appearance Cloudy A (Clear) Urine pH 6.5 (4.5-7.5) Ur Specific [place] 1.008 (1.000-1.030) Urine Protein Negative (Negative) Urine Glucose (UA) Negative (Negative) Diagnostic Findings Head CT 12/09/22 14:43 CT OF THE HEAD WITHOUT CONTRAST CLINICAL HISTORY: dizziness/vertigo, HTN COMPARISON STUDY: Head CT September 11, 2016. MRI of the brain August 25, 2013. TECHNIQUE: Helical axial images of the head were obtained without IV contrast. Automated exposure control was utilized for the study. A dose lowering technique was utilized adhering to the principles of ALARA. FINDINGS: No acute intracranial hemorrhage, midline shift or mass effect is present. The ventricular system is stable. Old right [employer]EDIATION BIOANALYT[employer] CONSULTANT territory infarct is again noted with encephalomalacia. Suspected old lacunar infarct within the post erior limb of the right internal capsule is unchanged. White matter hypodensity suggests small vessel disease. The basal cisterns are patent. No extra-axial collections are present. There are no findings to suggest acute dural sinus thrombosis or acute territorial infarct. No significant calvarial abnormalities are present. Visualized portions of the sinuses and mastoid air cells are clear. IMPRESSION: No acute intracranial findings. No change in appearance of the brain. ACT 112: Negative or not required by law. Electronically signed by: Tereso Colby M.D. 12/09/2022 5:56 PM Head CTA 12/09/22 14:44 HEAD CTA HISTORY: vertigo/dizziness/HTN TECHNIQUE: Multiaxial CT images of the head were performed following the intravenous administration of contrast to evaluate the major cerebral vessels. Maximum intensity projection images were also obtained. A dose lowering technique was utilized adhering to the principles of ALARA. COMPARISON: Noncontrast head CT 12/09/2022 FINDINGS: There is an old right occipital lobe infarct. Visualized intracranial internal carotid arteries, distal vertebral arteries, and basilar artery are widely patent. There is no significant stenosis, occlusion, or aneurysm seen within the bilateral ACAs, MCAs, or left REMEDIATION BIOANALYTICS CONSULTANT. Mildly attenuated right REMEDIATION BIOANALYTICS CONSULTANT likely corresponds to the old right REMEDIATION BIOANALYTICS CONSULTANT territory infarct. Moderate calcified plaque within the bilateral carotid siphons. The major dural venous sinuses are patent. IMPRESSION: No significant stenosis, occlusion, or aneurysm within the tetlin of [place]. ACT 112: Negative or not required by law. Electronically signed by: Everton Calles M.D. 12/09/2022 5:56 PM Neck CTA 12/09/22 14:44 CT ANGIOGRAPHY OF THE NECK WITH CONTRAST CLINICAL HISTORY: vertigo/dizziness/HTN COMPARISON STUDY: Carotid ultrasound August 24, 2013. MRI of the neck August 25, 2013. Technique: CT angiography of the carotid and vertebral arteries was obtained using Optir[employer] and 3D reconstruction on an independent workstation. NASCET criteria was utilized. Automated exposure control was utilized for the study. A dose lowering technique was utilized adhering to the principles of ALARA. Findings: Moderate plaque of the aortic arch is noted. There is calcified plaque within the proximal left subclavian artery which results in approximate 40% stenosis. The left vertebral artery is patent. There is mild stenosis at the origin of the right vertebral artery. There is no dissection within the major vessels of the neck. The bilateral common carotid arteries are patent. There is moderate plaque within the proximal left internal carotid artery without significant stenosis. There is mild plaque within the proximal right internal carotid artery without stenosis. IMPRESSION: 1. No stenosis within the bilateral common carotid or cervical internal carotid arteries. Plaque within the proximal bilateral internal carotid arteries, as above. 2. 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 Mild stenosis at the origin of the right vertebral artery. 3. No dissection or aneurysm within the neck. ACT 112: Negative or not required by law. Electronically signed by: Tereso Colby M.D. 12/09/2022 6:03 PM Supervising Physician Co-Signing Physician Notes Date of Service: December 09, 2022 History and physical exam performed by co History notable for 86-year-old woman with history of hypertension, CVA who presents with orthostatic dizziness started about a week ago occasionally associated with vertigo. Usually last a few minutes and resolves. However today has been more severe and persisted associated with nausea and vomiting. Reported headache only started while in the hospital. Denied any focal deficits. Granddaughter who was at bedside also reported that left UE appears to 'hang sometimes" from her previous stroke She denied any worsened weakness, sensory deficits, slurred speech. Denied urinary symptoms She reported she has been missing her lisinopril because it is a morning med. Stated it is easier to take the night med (simvastatin) which she does not miss On exam, General: Elderly woman in no distress Eyes: PERRL, conjunctivae normal, not pale, anicteric sclerae, EOM intact bilaterally ENMT: External ear and nose normal, oropharynx normal Respiratory: Normal respiratory effort, no respiratory distress, lungs clear to auscultation, no crackles and no wheezes Cardiovascular: RRR S1 S2, 192/67 Gastrointestinal (Abdomen): Abdomen is not distended, soft, non-tender to palpation, no guarding, no palpable hepatosplenomegaly, normal bowel sounds Musculoskeletal: No pedal edema Neurologic: Alert and oriented to person, place, month and year (baseline), power appear equal in upper and lower extremities bilaterally Psychiatric: Seemed irritated. She stated this was because she did not want to be admitted but agreed to stay one night. Labs notable for hemoglobin of 16.2, troponin of [address] noted no acute abnormalities. Old right [employer] CONSULTANT territory infarct with encephalomalacia. Neck CT angio noted plaque within proximal bilateral internal carotid, approximate 40% stenosis of proximal left subclavian artery, mild stenosis at origin of right vertebral artery. Hypertensive emergency BP was 251/83 on presentation Not taking her lisinopril in the morning but she stated she vomited and could have vomited that. Got lisinopril 5 mg in ER this evening. We will start amlodipine 5 mg tonight. Monitor blood pressure trend. We will change lisinopril to bedtime schedule to aid with adherence. If BP still poorly controlled, use increased lisinopril dose 10mg HS. Elevated trop likely due to demand. Trend EKG is normal Get Echo Cardiology c/s to aid with optimizing med Will need PT/OT eval Other plans as detailed by Jaelyn Olsen PA-C
[2022-12-09] MEDS ORDERED: amLODIPine BESYLATE 5 MG TAB PO ONE (19:24)
--- NOTE | 2022-12-09 19:44 | Communication Note ---
Date of Service: December 09, 2022 History and physical exam performed by me History notable for 86-year-old woman with history of hypertension, CVA who presents with orthostatic dizziness started about a week ago occasionally associated with vertigo. Usually last a few minutes and resolves. However today has been more severe and persisted associated with nausea and vomiting. Reported headache only started while in the hospital. Denied any focal deficits. Granddaughter who was at bedside also reported that left UE appears to 'hang sometimes" from her previous stroke She denied any worsened weakness, sensory deficits, slurred speech. Denied urinary symptoms She reported she has been missing her lisinopril because it is a morning med. Stated it is easier to take the night med (simvastatin) which she does not miss On exam, General: Elderly woman in no distress Eyes: PERRL, conjunctivae normal, not pale, anicteric sclerae, EOM intact bilaterally ENMT: External ear and nose normal, oropharynx normal Respiratory: Normal respiratory effort, no respiratory distress, lungs clear to auscultation, no crackles and no wheezes Cardiovascular: RRR S1 S2, 192/67 Gastrointestinal (Abdomen): Abdomen is not distended, soft, non-tender to palpation, no guarding, no palpable hepatosplenomegaly, normal bowel sounds Musculoskeletal: No pedal edema Neurologic: Alert and oriented to person, place, month and year (baseline), power appear equal in upper and lower extremities bilaterally Psychiatric: Seemed irritated. She stated this was because she did not want to be admitted but agreed to stay one night. Labs notable for hemoglobin of 16.2, troponin of [address] noted no acute abnormalities. Old right SPECIAL NEEDS TEACHER territory infarct with encephalomalacia. Neck CT angio noted plaque within proximal bilateral internal carotid, approximate 40% stenosis of proximal left subclavian artery, mild stenosis at origin of right vertebral artery. Hypertensive emergency BP was 251/83 on presentation Not taking her lisinopril in the morning but she stated she vomited and could have vomited that. Got lisinopril 5 mg in ER this evening. We will start amlodipine 5 mg tonight. Monitor blood pressure trend. We will change lisinopril to bedtime schedule to aid with adherence. If BP still poorly controlled, use increased lisinopril dose 10mg HS. Elevated trop likely due to demand. Trend EKG is normal Get Echo Cardiology c/s to aid with optimizing med Will need PT/OT eval Other plans as detailed by Jaelyn Olsen PA-C
--- NOTE | 2022-12-09 20:21 | XRay Report ---
XR chest 1V portable HISTORY: hypertension COMPARISON: Chest 12/11/2018. FINDINGS: No pneumothorax. No pleural effusions. The lungs are clear. The heart is normal in size. Ca lcifications within the aortic knob. IMPRESSION: No acute process. ACT 112: Negative or not required by law. Electronically signed by: Everton Calles M.D. 12/09/2022 8:19 PM
[2022-12-09] MEDS ORDERED: POLYETHYLENE (MIRALAX) 17 GM PACK PO PRN (20:30)
[2022-12-09] MEDS ORDERED: hydrALAZINE HCL 20 MG/ML VIAL IV PRN (20:30)
[2022-12-09] MEDS ORDERED: PHARMACIST DISCHARGE MED REC CONSULT PRN (20:30)
[2022-12-09] MEDS ORDERED: ONDANSETRON INJ 2 MG/ML 2 ML VIAL IV PRN (20:30)
[2022-12-09] MEDS ORDERED: ACETAMINOPHEN 325 MG TAB PO PRN (20:30)
[2022-12-09] MEDS ORDERED: SIMVASTATIN 20 MG TAB PO SCH (21:00)
[2022-12-09] MEDS ORDERED: lisinopril 10 MG TAB PO SCH (21:00)
[2022-12-09] MEDS ORDERED: amLODIPine BESYLATE 5 MG TAB PO SCH (21:00)
[2022-12-10] MEDS ORDERED: MECLIZINE 12.5 MG TAB PO PRN (08:01)
[2022-12-10 08:06] LABS: Basophils # (auto) 0.04 K/uL (0-0.2); Basophils % (auto) 0.7 %; Eosinophils # (auto) 0.08 K/uL (0-0.50); Eosinophils % (auto) 1.4 %; Hematocrit (blood only) 42.7 % (37.0-47.0); Hemoglobin 14.6 g/dl (12.0-16.0); Immature Granulocytes # (auto) 0.02 K/uL (0.01-0.20); Immature Granulocytes % (auto) 0.3 %; Lymphocytes % (auto) 40.6 %; Mean Corpuscular Hemoglobin 32.7 pg (25.0-34.0); Mean Corpuscular Hgb Conc 34.2 g/dL (32.0-36.0); Mean Corpuscular Volume 95.7 fL (80.0-100.0); Mean Platelet Volume 12.1 fL (9.4-12.4); Monocytes # (auto) 0.59 K/uL (0.11-0.59); Neutrophils # (auto) 2.78 K/uL (1.40-6.50); Nucleated RBC # (auto) 0.02 K/uL (0-0.12); Nucleated RBC % (auto) 0.3 %; Platelet Count 147 K/uL (130-400); RDW Standard Deviation 45.8 fL (36.4-46.3); Red Blood Count 4.46 M/uL (4.20-5.40); White Blood Count 5.91 K/ul (4.8-10.8)
[2022-12-10 08:20] LABS: BUN Creatinine Ratio 12.6 (10-20); Calcium 9.1 mg/dl (8.5-10.1); Chol HDL Ratio 2.3 (0-5); Creatinine Clr Calc Pharmacy 35.8 ml/min; Est GFR (African American) 69.9 ml/min; Est GFR (Non-African American) 60.3 ml/min; Potassium 3.5 mmol/L (3.5-5.1)
[2022-12-10 08:28] LABS: Troponin I High Sensitivity 155.8 pg/ml (0-14)
[2022-12-10] MEDS ORDERED: ASPIRIN 325 MG ECTAB PO SCH (09:00)
[2022-12-10] MEDS ORDERED: DOCUSATE SODIUM 100 MG CAP PO SCH (09:00)
[2022-12-10] MEDS ORDERED: cefTRIAXone SODIUM 1,000 MG in DEXTROSE 5% AD-VAN 50 ML IV SCH (09:00)
[2022-12-10 10:17] LABS: Estimated Average Glucose 100 mg/dl; Hemoglobin A1C 5.1 % (4.5-5.6)
--- NOTE | 2022-12-10 10:17 | Electrocardiogram Report ---
Test Reason : Blood Pressure : / mmHG Vent. Rate : 063 BPM Atrial Rate : 063 BPM P-R Int : 166 ms QRS Dur : 088 ms QT Int : 468 ms P-R-T Axes : 051 036 049 degrees QTc Int : 478 ms Poor data quality, interpretation may be adversely affected Normal sinus rhythm Normal ECG When compared with ECG of 09-DEC-2022 15:08, No significant change was found Confirmed by Johny Granda ([id number]) on 12/10/2022 10:17:13 AM Referred By: REFERRED SELF Confirmed By:Johny Granda
--- NOTE | 2022-12-10 11:08 | Cardiology Consultation ---
Date of Consultation December 10, 2022 Assessment & Plan (1) History of CVA (cerebrovascular accident): (2) Elevated troponin: (3) Hypertensive emergency: Plan I believe the patient's troponin elevation is related to her hypertensive urgency due to stress. She needs to remain on her medications. After I explained this to her she is understanding and will try her best. At this point I do not believe any additional cardiac testing is indicated. Her echocardiogram was unremarkable without new wall motion abnormalities. She can be discharged per the hospitalist service and followed up by her primary care physician. History of Present Illness Attending Physician: Quoc Alexander MD History of Present Illness This is an 86-year-old female with a history of a previous CVA and hypertension. She has been noncompliant with her medications recently. She states that she forgets to take her morning blood pressure medications and then is afraid to take them later in the day. She presented with hypertensive crisis. Associated with dizziness. She was placed back on antihypertensive medications and her blood pressure markedly improved along with her symptoms. Her high-sensitivity troponins are borderline elevated and her mites likely a type II elevation due to strain from the hypertension. She has had no chest pain. She denies progre ssive shortness of breath orthopnea. Echocardiogram completed today shows no new wall motion abnormalities. EKGs have been normal. Allergies Allergy/AdvReac Type Severity Reaction Status Date / Time bee venom protein (honey bee) Allergy Mild RASH/WELTS Unverified 12/09/22 15:30 Penicillins Allergy Mild OTHER Verified 12/09/22 15:30 Home Medications Medication Instructions Recorded Confirmed Type aspirin 325 mg tablet 325 mg PO DAILY 12/11/18 12/09/22 History docusate sodium 100 mg capsule 100 mg PO DAILY 12/11/18 12/09/22 History lisinopril 5 mg tablet 5 mg PO DAILY 12/11/18 12/09/22 History simvastatin 20 mg tablet (Zocor) 20 mg PO HS 12/11/18 12/09/22 History Patient History Medical History History of CVA (cerebrovascular accident) HLD (hyperlipidemia) Hypertension Stroke Surgical History History of cholecystectomy Hx of tonsillectomy Family History Other Lymphoma Social History Smoking Status: Never smoker Hx Alcohol Use: Yes Alcohol type: beer Hx Substance Use: No Preferred Language: Green[place]ic Communication Ability: Effective Nursery Technician Required: No Beliefs That Will Affect Care: None Current Living Situation: Alone Current Living Situation Comment: Patient lives alone in apartment on granddaughter's property Other Information That Helps Us Care for You: No Feels Safe at Home: Yes Safety Concerns: Feels Safe At This Time Assistive Devices: Denture - Upper and Glasses Assistive Devices Comment: patient stated she lost upper denture, has a walker at home, reading glasse Review of Systems Review of Systems: Review of Systems: See HPI for pertinent positives. All other 10 point review of systems are negative. Physical Exam Physical Exam: General: no acute distress and stated age Head: normocephalic, no masses, lesions, tenderness or abnormalities Eyes: conjunctiva are pink and non-injected, sclera clear Neck: supple, no adenopathy, no bruits, normal jugular venous pulse, no hepatojugular reflux Chest: normal shape and normal respiratory effort Lungs: clear to auscultation and percussion Cardiac Exam: - regular rate & rhythm, no murmurs gallops or rubs - normal S1, normal S2 Pulses: 2(+) throughout Abdomen: abdomen soft, non-tender, no abnormal masses and no hepatosplenomegaly Musculoskeletal: no gait disturbance, no joint inflammation, no deforming arthritis Extremities: no edema and no cyanosis Neuro: grossly normal exam Results & Data ([facility]) Vital Signs (Past 12 Hours) Vital Signs Temp Pulse Pulse Resp BP BP Pulse Ox 12/10/22 10:47 36.7 C 60 18 116/62 95 12/10/22 08:00 12/10/22 08:42 65 12/10/22 06:57 36.8 C 64 18 144/59 H 95 12/10/22 03:00 36.5 C 63 20 141/77 H 97 O2 Del Method 12/10/22 10:47 Room Air 12/10/22 08:00 Room Air 12/10/22 08:42 12/10/22 06:57 Room Air 12/10/22 03:00 Room Air Laboratory Results Laboratory Results - last 24 hr 12/09/22 12/09/22 12/09/22 15:08 16:13 16:15 WBC 6.37 RBC 4.95 Hgb 16.2 H Hct 46.5 MCV 93.9 MCH 32.7 MCHC 34.8 RDW Std Deviation 43.1 RDW Coeff of Martha 12.4 Plt Count 160 MPV 11.9 Immature Gran % (Auto) 0.3 Neut % (Auto) 69.4 Lymph % (Auto) 24.6 [place] % (Auto) 5.0 Eos % (Auto) 0.2 Baso % (Auto) 0.5 Neut # (Auto) 4.42 Lymph # (Auto) 1.57 [place] # (Auto) 0.32 Eos # (Auto) 0.01 Baso # (Auto) 0.03 Immature Gran # (Auto) 0.02 Absolute Nucleated RBC Nucleated RBC % (auto) PT INR Sodium Potassium Chloride Carbon Dioxide Anion Gap BUN Creatinine Est Cr Clr Drug Dosing Est GFR ( Amer) Est GFR (Non-Af Amer) BUN/Creatinine Ratio Glucose Estimat Average Glucose Hemoglobin A1c Calcium Magnesium Total Bilirubin AST ALT Alkaline Phosphatase Troponin I High Sens Total Protein Albumin Globulin Albumin/Globulin Ratio Triglycerides Cholesterol LDL Cholesterol, Calc VLDL Cholesterol, Calc HDL Cholesterol Cholesterol/HDL Ratio TSH Urine Color Yellow Urine Appearance Cloudy A Urine pH 6.5 Ur Specific [place] 1.008 Urine Protein Negative Urine Glucose (UA) Negative Urine Ketones Trace H Urine Blood 2+ H Urine Nitrite Negative Urine Bilirubin Negative Urine Urobilinogen Negative Ur Leukocyte Esterase 1+ H Urine WBC (Auto) 10-30 H Urine RBC (Auto) 0-4 U Hyaline Cast (Auto) 0 U Epithel Cells (Auto) 5-10 H Urine Bacteria (Auto) 2+ H SARS-CoV-2, RNA, NAAT NEGATIVE 12/09/22 12/09/22 12/09/22 16:15 16:15 16:15 WBC RBC Hgb Hct MCV MCH MCHC RDW Std Deviation RDW Coeff of [place] Plt Count MPV Immature Gran % (Auto) Neut % (Auto) Lymph % (Auto) [place] % (Auto) Eos % (Auto) Baso % (Auto) Neut # (Auto) Lymph # (Auto) [place] # (Auto) Eos # (Auto) Baso # (Auto) Immature Gran # (Auto) Absolute Nucleated RBC Nucleated RBC % (auto) PT 11.3 INR 1.1 Sodium 138 Potassium 4.1 Chloride 103 Carbon Dioxide 30 Anion Gap 5 BUN 8 Creatinine 0.72 Est Cr Clr Drug Dosing 42.4 Est GFR ( Amer) 87.9 Est GFR (Non-Af Amer) 75.8 BUN/Creatinine Ratio 11.1 Glucose 108 H Estimat Average Glucose Hemoglobin A1c Calcium 9.4 Magnesium 2.0 Total Bilirubin 0.8 AST 22 ALT 11 Alkaline Phosphatase 81 Troponin I High Sens 222.4 H* Total Protein 7.4 Albumin 3.9 Globulin 3.5 Albumin/Globulin Ratio 1.1 Triglycerides Cholesterol LDL Cholesterol, Calc VLDL Cholesterol, Calc HDL Cholesterol Cholesterol/HDL Ratio TSH 0.875 Urine Color Urine Appearance Urine pH Ur Specific [place] Urine Protein Urine Glucose (UA) Urine Ketones Urine Blood Urine Nitrite Urine Bilirubin Urine Urobilinogen Ur Leukocyte Esterase Urine WBC (Auto) Urine RBC (Auto) U Hyaline Cast (Auto) U Epithel Cells (Auto) Urine Bacteria (Auto) SARS-CoV-2, RNA, NAAT 12/09/22 12/10/22 12/10/22 22:34 07:22 07:22 WBC 5.91 RBC 4.46 Hgb 14.6 Hct 42.7 MCV 95.7 MCH 32.7 MCHC 34.2 RDW Std Deviation 45.8 RDW Coeff of [place] 13.0 Plt Count 147 MPV 12.1 Immature Gran % (Auto) 0.3 Neut % (Auto) 47.0 Lymph % (Auto) 40.6 [place] % (Auto) 10.0 Eos % (Auto) 1.4 Baso % (Auto) 0.7 Neut # (Auto) 2.78 Lymph # (Auto) 2.40 [place] # (Auto) 0.59 Eos # (Auto) 0.08 Baso # (Auto) 0.04 Immature Gran # (Auto) 0.02 Absolute Nucleated RBC 0.02 Nucleated RBC % (auto) 0.3 PT INR Sodium 141 Potassium 3.5 Chloride 105 Carbon Dioxide 31 Anion Gap 5 BUN 11 Creatinine 0.87 Est Cr Clr Drug Dosing 35.8 Est GFR ( Amer) 69.9 Est GFR (Non-Af Amer) 60.3 BUN/Creatinine Ratio 12.6 Glucose 98 Estimat Average Glucose Hemoglobin A1c Calcium 9.1 Magnesium Total Bilirubin AST ALT Alkaline Phosphatase Troponin I High Sens 338.6 H* D 155.8 H* D Total Protein Albumin Globulin Albumin/Globulin Ratio Triglycerides 126 Cholesterol 136 LDL Cholesterol, Calc 53 VLDL Cholesterol, Calc 25 HDL Cholesterol 58 Cholesterol/HDL Ratio 2.3 TSH Urine Color Urine Appearance Urine pH Ur Specific [place] Urine Protein Urine Glucose (UA) Urine Ketones Urine Blood Urine Nitrite Urine Bilirubin Urine Urobilinogen Ur Leukocyte Esterase Urine WBC (Auto) Urine RBC (Auto) U Hyaline Cast (Auto) U Epithel Cells (Auto) Urine Bacteria (Auto) SARS-CoV-2, RNA, NAAT 12/10/22 07:22 WBC RBC Hgb Hct MCV MCH MCHC RDW Std Deviation RDW Coeff of [place] Plt Count MPV Immature Gran % (Auto) Neut % (Auto) Lymph % (Auto) [place] % (Auto) Eos % (Auto) Baso % (Auto) Neut # (Auto) Lymph # (Auto) [place] # (Auto) Eos # (Auto) Baso # (Auto) Immature Gran # (Auto) Absolute Nucleated RBC Nucleated RBC % (auto) PT INR Sodium Potassium Chloride Carbon Dioxide Anion Gap BUN Creatinine Est Cr Clr Drug Dosing Est GFR ( Amer) Est GFR (Non-Af Amer) BUN/Creatinine Ratio Glucose Estimat Average Glucose 100 Hemoglobin A1c 5.1 Calcium Magnesium Total Bilirubin AST ALT Alkaline Phosphatase Troponin I High Sens Total Protein Albumin Globulin Albumin/Globulin Ratio Triglycerides Cholesterol LDL Cholesterol, Calc VLDL Cholesterol, Calc HDL Cholesterol Cholesterol/HDL Ratio TSH Urine Color Urine Appearance Urine pH Ur Specific [place] Urine Protein Urine Glucose (UA) Urine Ketones Urine Blood Urine Nitrite Urine Bilirubin Urine Urobilinogen Ur Leukocyte Esterase Urine WBC (Auto) Urine RBC (Auto) U Hyaline Cast (Auto) U Epithel Cells (Auto) Urine Bacteria (Auto) SARS-CoV-2, RNA, NAAT Medications Administered Current Inpatient Medications Acetaminophen (Acetaminophen 325 Mg Tab) 650 mg PO Q4H PRN PRN Reason: Pain or Fever Stop: 01/08/23 20:29 Amlodipine Besylate (Amlodipine Besylate 5 Mg Tab) 5 mg PO HS ALBERTO Stop: 01/08/23 20:59 Last Admin: 12/09/22 21:28 Dose: 5 mg Aspirin (Aspirin 325 Mg Ectab) 325 mg PO DAILY ALBERTO Stop: 01/09/23 08:59 Last Admin: 12/10/22 08:07 Dose: 325 mg Docusate Sodium (Docusate Sodium 100 Mg Cap) 100 mg PO DAILY [facility] Stop: 01/09/23 08:59 Last Admin: 12/10/22 08:07 Dose: 100 mg Hydralazine HCl (Hydralazine Hcl 20 Mg/Ml Vial) 5 mg IV Q6H PRN PRN Reason: hypertension Stop: 01/08/23 20:29 Ceftriaxone Sodium 1,000 mg/ (Dextrose) 50 mls @ 100 mls/hr IV Q24H ALBERTO; Protocol Stop: 12/15/22 08:59 Last Infusion: 12/10/22 10:51 Dose: Infused Lisinopril (Lisinopril 10 Mg Tab) 10 mg PO HS [facility] Stop: 01/08/23 20:59 Last Admin: 12/09/22 21:29 Dose: 10 mg Meclizine HCl (Meclizine 12.5 Mg Tab) 12.5 mg PO Q8H PRN PRN Reason: Dizziness or Vertigo Stop: 01/09/23 08:00 Miscellaneous Information (Pharmacist Discharge Med Rec Consult) 1 each N/A UD PRN PRN Reason: Consult Stop: 01/08/23 20:29 Ondansetron HCl (Ondansetron Inj 2 Mg/Ml 2 Ml Vial) 4 mg IV Q6H PRN PRN Reason: Nausea Stop: 01/08/23 20:29 Polyethylene Glycol (Polyethylene (Miralax) 17 Gm Pack) 17 gm PO DAILY PRN PRN Reason: Constipation Stop: 01/08/23 20:29 Simvastatin (Simvastatin 20 Mg Tab) 20 mg PO HS [facility] Stop: 01/08/23 20:59 Last Admin: 12/09/22 21:28 Dose: 20 mg
--- NOTE | 2022-12-10 15:32 | Hospitalist Progress Note ---
Date of Service December 10, 2022 Assessment & Plan (1) Hypertensive emergency: (2) Dizziness: Plan: Patient is an 86 yr female with H/O CVA with residual left sided weakness, HTN, dyslipidemia presented to ER with c/o dizziness x 1 week. Has not been taking lisinopril regularly. Dizziness Likely due to hypertensive urgency Medication noncompliance --CT head: No acute intracranial findings. No change in appearance of the brain. --CTA head:No significant stenosis, occlusion, or aneurysm within the [place] of [place]. --CTA neck: No stenosis within the bilateral common carotid or cervical internal carotid arteries. Plaque within the proximal bilateral internal carotid arteries, as above. 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 Mild stenosis at the origin of the right vertebral artery. No dissection or aneurysm within the neck. --ECHO: Mild concentric LVH. Left ventricle systolic function is normal. EF 55 to 60%. Grade 2 diastolic dysfunction. Right ventricle systolic function is normal. Left atrium is mildly dilated. Right atrial size is normal. Mild tricuspid regurgitation. -- Lisinopril dose increased to 10 mg daily Added amlodipine 2.5 mg daily Fall precautions PT OT eval Urinary tract infection Preliminary urine culture growing gram-negative bacilli Empirically on Rocephin Monitor (3) Elevated troponin: Plan: Troponin elevation Demand ischemia likely secondary to hypertensive urgency Less likely ACS Echo as above Appreciate cardiology input Continue home medications (4) History of CVA (cerebrovascular accident): Plan: CVA with residual left sided weakness Continue aspirin, simvastatin (5) HLD (hyperlipidemia): Plan: Continue simvastatin DVT Px SCDs CODE STATUS DNR/DNI Admission and Anticipated Discharge Date Admission Date: December 09, 2022 Subjective Patient is seen and examined at bedside Dizziness resolved Denies any chest pain, shortness of breath, nausea, vomiting, abdominal pain, dysuria Discussed with cardiology today Patient prefers to be discharged home today Urine culture pending Review of Systems Review of Systems: All systems reviewed & are unremarkable except as noted in Subjective Physical Exam Physical Exam: Physical Exam: Vitals signs as noted above General Appearance:Moderately built and nourished, Elderly, no apparent distress Head: normocephalic, Atraumatic Eyes: normal inspection, EOMI Neck: supple, Trachea midline Respiratory/Chest: Normal breath sounds, CTA, No accessory muscle use Cardiovascular: S1, S2, No murmur Abdomen/GI:Soft, Non tender, Bowel sounds present Extremities/Musculoskeletal:normal inspection, no edema Neurologic/Psych:AAOX3, grossly no focal neurological deficits Skin: normal color, warm Results & Data Results & Data ([facility]) Vital Signs (Past 12 Hours) Vital Signs Temp Pulse Pulse Resp BP BP Pulse Ox 12/10/22 15:00 63 12/10/22 14:45 36.6 C 62 18 138/74 95 12/10/22 10:47 36.7 C 60 18 116/62 95 12/10/22 08:00 12/10/22 08:42 65 12/10/22 06:57 36.8 C 64 18 144/59 H 95 O2 Del Method 12/10/22 15:00 12/10/22 14:45 Room Air 12/10/22 10:47 Room Air 12/10/22 08:00 Room Air 12/10/22 08:42 12/10/22 06:57 Room Air Laboratory Results Short CBC 12/09/22 12/10/22 Range/Units 16:15 07:22 WBC 6.37 5.91 (4.8-10.8) K/ul Hgb 16.2 H 14.6 (12.0-16.0) g/dl Hct 46.5 42.7 (37.0-47.0) % Plt Count 160 147 (130-400) K/uL BMP 12/09/22 12/10/22 16:15 07:22 Sodium 138 141 Potassium 4.1 3.5 Chloride 103 105 Carbon Dioxide 30 31 BUN 8 11 Creatinine 0.72 0.87 Glucose 108 H 98 Calcium 9.4 9.1 Liver Function 12/09/22 Range/Units 16:15 Total Bilirubin 0.8 (0.2-1.0) mg/dl AST 22 (13-39) U/L ALT 11 (7-52) U/L Alkaline Phosphatase 81 (34-104) U/L Albumin 3.9 (3.4-5.0) gm/dl Urine 12/09/22 Range/Units 16:13 Urine Color Yellow Urine Appearance Cloudy A (Clear) Urine pH 6.5 (4.5-7.5) Ur Specific [place] 1.008 (1.000-1.030) Urine Protein Negative (Negative) Urine Glucose (UA) Negative (Negative)
[2022-12-10] MEDS ORDERED: amLODIPine BESYLATE 5 MG TAB PO SCH (21:00)
--- NOTE | 2022-12-11 07:37 | Discharge Summary ---
Date of Service December 11, 2022 Admission HPI Per Admitting Provider Patient is 86 y/o F with PMH CVA with residual left sided weakness, HTN, dyslipidemia presented to ER with c/o dizziness x 1 week. History obtained from patient and patient's granddaughter at bedside. Intermittent dizziness this past week. Describes dizziness as spinning sensation that causes her to be off balance and fall. She states has fallen on her buttocks a couple of times. Denies hitting head and denies any known injury. Reports nausea, vomiting with dizziness. Denies any noted increased weakness. Denies speech changes, facial drooping. Has chronic left sided weakness from prior stroke and denies any increased extremity weakness. While in ER had some posterior headache which has since resolved. Has not been taking her lisinopril regularly because she states forgets to take in the morning because she is busy in the mornings. Took medications today, however vomited shortly after taking. Chronic intermittent nonproductive cough. Chronic constipation. Denies fever/chills, diaphoresis, diarrhea, syncope, vision changes, neck pain, CP, SOB, orthopnea, palpitations, cough, sore throat, choking, otalgia, rhinorrhea, abdominal pain, paresthesias, extremity edema, rashes, urinary symptoms. Admission Exam Per Admitting Provider On exam, General: Elderly woman in no distress Eyes: PERRL, conjunctivae normal, not pale, anicteric sclerae, EOM intact bilaterally ENMT: External ear and nose normal, oropharynx normal Respiratory: Normal respiratory effort, no respiratory distress, lungs clear to auscultation, no crackles and no wheezes Cardiovascular: RRR S1 S2, 192/67 Gastrointestinal (Abdomen): Abdomen is not distended, soft, non-tender to palpation, no guarding, no palpable hepatosplenomegaly, normal bowel sounds Musculoskeletal: No pedal edema Neurologic: Alert and oriented to person, place, month and year (baseline), power appear equal in upper and lower extremities bilaterally Psychiatric: Seemed irritated. She stated this was because she did not want to be admitted but agreed to stay one night. Principal Diagnosis Dizziness Hypertensive urgency Urinary tract infection Discharge Data Allergies Allergy/AdvReac Type Severity Reaction Status Date / Time bee venom protein (honey bee) Allergy Mild RASH/WELTS Unverified 12/09/22 15:30 Penicillins Allergy Mild OTHER Verified 12/09/22 15:30 Consultations 12/09/22 18:26 ED Decision to Admit Stat 12/09/22 20:30 Consult Cardiology Routine Procedures Performed Laboratory Results WBC 5.91 K/ul (4.8-10.8) 12/10/22 07:22 RBC 4.46 M/uL (4.20-5.40) 12/10/22 07:22 Hgb 14.6 g/dl (12.0-16.0) 12/10/22 07:22 Hct 42.7 % (37.0-47.0) 12/10/22 07:22 MCV 95.7 fL (80.0-100.0) 12/10/22 07:22 MCH 32.7 pg (25.0-34.0) 12/10/22 07: MCHC 34.2 g/dL (32.0-36.0) 12/10/22 07:22 RDW Std Deviation 45.8 fL (36.4-46.3) 12/10/22 07:22 RDW Coeff of Martha 13.0 % (11.5-14.5) 12/10/22 07:22 Plt Count 147 K/uL (130-400) 12/10/22 07:22 MPV 12.1 fL (9.4-12.4) 12/10/22 07:22 Immature Gran % (Auto) 0.3 % 12/10/22 07:22 Neut % (Auto) 47.0 % 12/10/22 07:22 Lymph % (Auto) 40.6 % 12/10/22 07:22 Caroline % (Auto) 10.0 % 12/10/22 07:22 Eos % (Auto) 1.4 % 12/10/22 07:22 Baso % (Auto) 0.7 % 12/10/22 07:22 Neut # (Auto) 2.78 K/uL (1.40-6.50) 12/10/22 07:22 Lymph # (Auto) 2.40 K/uL (1.2-3.4) 12/10/22 07:22 Caroline # (Auto) 0.59 K/uL (0.11-0.59) 12/10/22 07:22 Eos # (Auto) 0.08 K/uL (0-0.50) 12/10/22 07:22 Baso # (Auto) 0.04 K/uL (0-0.2) 12/10/22 07:22 Immature Gran # (Auto) 0.02 K/uL (0.01-0.20) 12/10/22 07:22 Absolute Nucleated RBC 0.02 K/uL (0-0.12) 12/10/22 07:22 Nucleated RBC % (auto) 0.3 % 12/10/22 07:22 PT 11.3 Seconds (9.0-12.0) 12/09/22 16:15 INR 1.1 (0.9-1.1) 12/09/22 16:15 Sodium 141 mmol/L (136-145) 12/10/22 07:22 Potassium 3.5 mmol/L (3.5-5.1) 12/10/22 07:22 Chloride 105 mmol/L (98-107) 12/10/22 07:22 Carbon Dioxide 31 mmol/L (21-32) 12/10/22 07:22 Anion Gap 5 (3-11) 12/10/22 07:22 BUN 11 mg/dl (6-23) 12/10/22 07:22 Creatinine 0.87 mg/dl (0.6-1.2) 12/10/22 07:22 Est Cr Clr Drug Dosing 35.8 ml/min 12/10/22 07:22 Est GFR ( Amer) 69.9 ml/min 12/10/22 07:22 Est GFR (Non-Af Amer) 60.3 ml/min 12/10/22 07:22 BUN/Creatinine Ratio 12.6 (10-20) 12/10/22 07:22 Glucose 98 mg/dl (70-99(Fasting)) 12/10/22 07:22 Estimat Average Glucose 100 mg/dl 12/10/22 07:22 Hemoglobin A1c 5.1 % (4.5-5.6) 12/10/22 07:22 Calcium 9.1 mg/dl (8.5-10.1) 12/10/22 07:22 Magnesium 2.0 mg/dl (1.7-2.4) 12/09/22 16:15 Total Bilirubin 0.8 mg/dl (0.2-1.0) 12/09/22 16:15 AST 22 U/L (13-39) 12/09/22 16:15 ALT 11 U/L (7-52) 12/09/22 16:15 Alkaline Phosphatase 81 U/L (34-104) 12/09/22 16:15 Troponin I High Sens 155.8 pg/ml (0-14) H* D 12/10/22 07:22 Total Protein 7.4 gm/dl (6.0-8.3) 12/09/22 16:15 Albumin 3.9 gm/dl (3.4-5.0) 12/09/22 16:15 Globulin 3.5 gm/dl (2.5-4.0) 12/09/22 16:15 Albumin/Globulin Ratio 1.1 (0.9-2) 12/09/22 16:15 Triglycerides 126 mg/dl (0-150) 12/10/22 07:22 Cholesterol 136 mg/dl (0-200) 12/10/22 07:22 LDL Cholesterol, Calc 53 mg/dl 12/10/22 07:22 VLDL Cholesterol, Calc 25 mg/dl (0-30) 12/10/22 07:22 HDL Cholesterol 58 mg/dl 12/10/22 07:22 Cholesterol/HDL Ratio 2.3 (0-5) 12/10/22 07:22 TSH 0.875 uIu/ml (0.300-4.500) 12/09/22 16:15 Urine Color Yellow 12/09/22 16:13 Urine Appearance Cloudy (Clear) A 12/09/22 16:13 Urine pH 6.5 (4.5-7.5) 12/09/22 16:13 Ur Specific [place] 1.008 (1.000-1.030) 12/09/22 16:13 Urine Protein Negative (Negative) 12/09/22 16:13 Urine Glucose (UA) Negative (Negative) 12/09/22 16:13 Urine Ketones Trace (Negative) H 12/09/22 16:13 Urine Blood 2+ (Negative) H 12/09/22 16:13 Urine Nitrite Negative (Negative) 12/09/22 16:13 Urine Bilirubin Negative (Negative) 12/09/22 16:13 Urine Urobilinogen Negative (Negative) 12/09/22 16:13 Ur Leukocyte Esterase 1+ (Negative) H 12/09/22 16:13 Urine WBC (Auto) 10-30 /hpf (0-5) H 12/09/22 16:13 Urine RBC (Auto) 0-4 /hpf (0-4) 12/09/22 16:13 U Hyaline Cast (Auto) 0 /lpf (0-5) 12/09/22 16:13 U Epithel Cells (Auto) 5-10 /lpf (0-5) H 12/09/22 16:13 Urine Bacteria (Auto) 2+ (Negative) H 12/09/22 16:13 SARS-CoV-2, RNA, NAAT NEGATIVE (NEGATIVE) 12/09/22 15:[address] 12/09/22 14:43 CT OF THE HEAD WITHOUT CONTRAST CLINICAL HISTORY: dizziness/vertigo, HTN COMPARISON STUDY: Head CT September 11, 2016. MRI of the brain August 25, 2013. TECHNIQUE: Helical axial images of the head were obtained without IV contrast. Automated exposure control was utilized for the study. A dose lowering technique was utilized adhering to the principles of ALARA. FINDINGS: No acute intracranial hemorrhage, midline shift or mass effect is present. The ventricular system is stable. Old right [employer] territory infarct is again noted with encephalomalacia. Suspected old lacunar infarct within the posterior limb of the right internal capsule is unchanged. White matter hypodensity suggests small vessel disease. The basal cisterns are patent. No extra-axial collections are present. There are no findings to suggest acute dural sinus thrombosis or acute territorial infarct. No significant calvarial abnormalities are present. Visualized portions of the sinuses and mastoid air cells are clear. IMPRESSION: No acute intracranial findings. No change in appearance of the brain. ACT 112: Negative or not required by law. Electronically signed by: Tereso Colby M.D. 12/09/2022 5:56 PM Head CTA 12/09/22 14:44 HEAD CTA HISTORY: vertigo/dizziness/HTN TECHNIQUE: Multiaxial CT images of the head were performed following the intravenous administration of contrast to evaluate the major cerebral vessels. Maximum intensity projection images were also obtained. A dose lowering technique was utilized adhering to the principles of ALARA. COMPARISON: Noncontrast head CT 12/09/2022 FINDINGS: There is an old right occipital lobe infarct. Visualized intracranial internal carotid arteries, distal vertebral arteries, and basilar artery are widely patent. There is no significant stenosis, occlusion, or aneurysm seen within the bilateral ACAs, MCAs, or left [employer]. Mildly attenuated right [employer] likely corresponds to the old right [employer] territory infarct. Moderate calcified plaque within the bilateral carotid siphons. The major dural venous sinuses are patent. IMPRESSION: No significant stenosis, occlusion, or aneurysm within the [place] of [place]. ACT 112: Negative or not required by law. Electronically signed by: Everton Calles M.D. 12/09/2022 5:56 PM Neck CTA 12/09/22 14:44 CT ANGIOGRAPHY OF THE NECK WITH CONTRAST CLINICAL HISTORY: vertigo/dizziness/HTN COMPARISON STUDY: Carotid ultrasound August 24, 2013. MRI of the neck August 25, 2013. Technique: CT angiography of the carotid and vertebral arteries was obtained using [employer] and 3D reconstruction on an independent workstation. NASCET criteria was utilized. Automated exposure control was utilized for the study. A dose lowering technique was utilized adhering to the principles of ALARA. Findings: Moderate plaque of the aortic arch is noted. There is calcified plaque within the proximal left subclavian artery which results in approximate 40% stenosis. The left vertebral artery is patent. There is mild stenosis at the origin of the right vertebral artery. There is no dissection within the major vessels of the neck. The bilateral common carotid arteries are patent. There is moderate plaque within the proximal left internal carotid artery without significant stenosis. There is mild plaque within the proximal right internal carotid artery without stenosis. IMPRESSION: 1. No stenosis within the bilateral common carotid or cervical internal carotid arteries. Plaque within the proximal bilateral internal carotid arteries, as above. 2. 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 Mild stenosis at the origin of the right vertebral artery. 3. No dissection or aneurysm within the neck. ACT 112: Negative or not required by law. Electronically signed by: Tereso Colby M.D. 12/09/2022 6:03 PM Chest X-Ray 12/09/22 19:48 XR chest 1V portable HISTORY: hypertension COMPARISON: Chest 12/11/2018. FINDINGS: No pneumothorax. No pleural effusions. The lungs are clear. The heart is normal in size. Calcifications within the aortic knob. IMPRESSION: No acute process. ACT 112: Negative or not required by law. Electronically signed by: Everton Calles M.D. 12/09/2022 8:19 PM Ordered Studies 12/09/22 14:43 CT head/brain wo con Stat 12/09/22 14:44 CT angio head w con Stat CT angio neck with con Stat Hospital Course (1) Hypertensive emergency: (2) Dizziness: Patient is an 86 yr female with H/O CVA with residual left sided weakness, HTN, dyslipidemia presented to ER with c/o dizziness x 1 week. Has not been taking lisinopril regularly. Dizziness Likely due to hypertensive urgency Medication noncompliance --CT head: No acute intracranial findings. No change in appearance of the brain. --CTA head:No significant stenosis, occlusion, or aneurysm within the [place] of [place]. --CTA neck: No stenosis within the bilateral common carotid or cervical internal carotid arteries. Plaque within the proximal bilateral internal carotid arteries, as above. 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 Mild stenosis at the origin of the right vertebral artery. No dissection or aneurysm within the neck. --ECHO: Mild concentric LVH. Left ventricle systolic function is normal. EF 55 to 60%. Grade 2 diastolic dysfunction. Right ventricle systolic function is normal. Left atrium is mildly dilated. Right atrial size is normal. Mild tricuspid regurgitation. -- Lisinopril dose increased to 10 mg daily Added amlodipine 2.5 mg daily Fall precautions PT OT eval Patient left AGAINST MEDICAL ADVICE despite explaining the risks and complications of being untreated for infection and uncontrolled blood pressure. Urinary tract infection Preliminary urine culture growing gram-negative bacilli Empirically on Rocephin Monitor (3) Elevated troponin: Troponin elevation Demand ischemia likely secondary to hypertensive urgency Less likely ACS Echo as above Appreciate cardiology input Continue home medications (4) History of CVA (cerebrovascular accident): CVA with residual left sided weakness Continue aspirin, simvastatin (5) HLD (hyperlipidemia): Continue simvastatin DVT Px SCDs CODE STATUS DNR/DNI Disposition AGAINST MEDICAL ADVICE Total Time Total Time Spent Total Time Spent (In Minutes): 45 Discharge Plan Discharge Items Patient Disposition: Against Medical Advice Reason For Visit: HTN Activity: As commented below Exercise/Sports: Wait until after follow-up appointment Non-emergency contact: Primary Care Provider Follow-up/Referrals: Janet Maria DO [Primary Care Provider] - Pending Studies at Discharge: Yes Stand-Alone Forms: [employer], Smoking Cessation Medications and DC Order Prescriptions: New lisinopril 10 mg tablet 10 mg PO DAILY Qty: 30 0RF cefdinir 300 mg capsule 300 mg PO BID Qty: 12 0RF Continued aspirin 325 mg Tablet 325 mg PO DAILY simvastatin [Zocor] 20 mg Tablet 20 mg PO HS docusate sodium 100 mg Capsule 100 mg PO DAILY Discontinued lisinopril 5 mg Tablet 5 mg PO DAILY Discharge Orders: Left Against Medical Advice (Routine); Ordered 12/10/22 Ordered By: Quoc Alexander Admission Data Admit Date/Time: 12/09/22 19:11 Attending Provider: Quoc Alexander Admit Provider: Lor Alvarado I. Primary Care Provider: Janet Maria Other Providers: Lor Alvarado I. ; Hever Landry
--- NOTE | 2022-12-11 12:04 | Communication Note ---
Date of Service: December 11, 2022 Urine culture growing E. coli. Prescription for cefdinir and increase lisinopril dose was sent to her pharmacy. Call patient and her granddaughter: N o answer. Will try again later.
--- NOTE | 2022-12-11 15:28 | Communication Note ---
Date of Service: December 11, 2022 Updated Patient's Granddaughter Mor. Understands and agrees with completing antibiotic course and increasing lisinopril to 10mg daily.
== END 2022-12-10 15:45 | disposition left against medical advice (07) | DRG 305 ==
LOC: ED 14:01 → SUATTDRO 19:11 → 2S 19:11
DX: I16.1 Hypertensive emergency; B96.20 Unspecified Escherichia coli [E. coli] as the cause of diseases classified elsewhere; Z66 Do not resuscitate; I10 Essential (primary) hypertension; Z88.0 Allergy status to penicillin; E78.5 Hyperlipidemia, unspecified; N39.0 Urinary tract infection, site not specified; I24.8 Other forms of acute ischemic heart disease; I69.354 Hemiplegia and hemiparesis following cerebral infarction affecting left non-dominant side; Z91.14 Patient's other noncompliance with medication regimen